=== PATIENT | male | born 1940 | race Caucasian/White ===

== ENCOUNTER 2017-01-16 12:08 | Inpatient (IN) | payer OTHER ==
[~2017-01-16] VITALS: Ht 170.2 cm; Wt 90.3 kg
--- NOTE | ~2017-01-16 | S ---
[facility] [place] [address] SURGICAL PATH RPT PROCEDURE Name: SCOTT LUNDBERG Room #: 314-P ADM IN M.R.#: [id number] Admission: 01/16/17 Date of : 40 Discharge: Report #: [id number] Path Case #: [id number] PATHOLOGY REPORT COLLECTION DATE: 01/16/2017 RECEIVED DATE: 01/17/2017 SUBMITTING PHYS: Dr. Valentin Westfall OTHER PHYS: Dr. Maximo Camacho SPECIMEN(S) RECEIVED: A.Peripheral smear * * * * * * * * * * * * FINAL DIAGNOSIS: Peripheral blood smear: - Severe microcytic anemia, mild lymphopenia, and mild thrombocytopenia. (see comment) COMMENT: Overall, the peripheral blood has severe microcytic anemia, mild lymphopenia, and mild thrombocytopenia. The WBC count is within the normal reference range. The etiology of the findings is unclear based entirely on slide review. Potential causes of microcytic anemia include iron deficiency and thalassemia. Potential causes of thrombocytopenia include immune and non-immune platelet destruction, drug and/or toxic exposures, blood loss, dilutional, and primary bone marrow disorders. The clinical significance of the mild lymphopenia is unclear. Correlation with clinical history and additional laboratory data is recommended. (RYANW:; 01/17/2017) PATHOLOGIST: Delmis Hsu M.D. REPORT ELECTRONICALLY SIGNED BY: Delmis Hsu M.D. DATE/TIME: 01/17/2017 16:53 * * * * * * * * * * * * MICROSCOPIC DESCRIPTION: CBC Data (01/16/17): WBC 4,800 /uL, RBC 3.34, hemoglobin 7.8 g/dL, hematocrit 25.1%, MCV 75.2 fL, MCH 23.3 pg, MCHC 31.0 g/dL, RDW 18.8%, and platelet count 126,000 /uL. Manual white blood cell differential: segs 69%, bands 5%, lymphs 10%, monos 12%, eos 2%, and basos 2%. Peripheral Blood Smear: Cytomorphological examination of the Chacon's stained peripheral blood smear confirms the provided data. Red blood cells show severe microcytic anemia with mild anisocytosis. No significant poikilocytosis is identified. White blood cells are predominantly [address] [address] SURGICAL PATH RPT PROCEDURE Name: SCOTT LUNDBERG Room #: 314-P ADM IN M.R.#: [id number] Admission: 01/16/17 Date of : 40 Discharge: Report #: [id number] Path Case #: [id number] segmented neutrophils and are without significant dyspoiesis or significant left shift. Lymphocytes are predominantly small, round, and mature appearing with condensed chromatin and scant cytoplasm with admixed large granular lymphocytes. On scanning, no markedly atypical lymphoid cells are seen. Monocytes are mature. Platelets are mildly decreased in number and mainly normal in morphology with rare larger platelets noted. GROSS PATHOLOGY: Received are one Chacon's stained peripheral blood smear and two unstained peripheral blood smears all labeled "Scott Lundberg" (CLW:mgtete; 01/17/2017) CLINICAL HISTORY: 76 year-old man with anemia. Morphologic review of the peripheral blood smear is requested by the patient's physician. INITIAL CPT CODE(S): A; NC Professional services performed by [facility] at [facility] [address], [place] [address] Technical services performed by [facility] at [address] [place] [address], [address] [address]. [facility] [address] [place] [address] PHONE: [phone] DIRECTOR: Jorge Alarcon M.D. * * * END OF REPORT * * *
--- NOTE | ~2017-01-16 | S ---
[facility] [place] [address] SURGICAL PATH RPT PROCEDURE Name: SCOTT LUNDBERG Room #: 314-P ADM IN M.R.#: [id number] Admission: 01/16/17 Date of : 40 Discharge: Report #: [id number] Path Case #: [id number] PATHOLOGY REPORT COLLECTION DATE: 01/17/2017 RECEIVED DATE: 01/17/2017 SUBMITTING PHYS: Dr. Obey Torres OTHER PHYS: Dr. Valentin Camacho SPECIMEN(S) RECEIVED: A.Bx of antrum * * * * * * * * * * * * FINAL DIAGNOSIS: Gastric mucosa, antrum, endoscopic biopsy: - Moderate reactive gastropathy. - Negative for intestinal metaplasia or atrophy. - Negative for Helicobacter pylori. COMMENT: Helicobacter pylori immunohistochemical stain performed on block A1 - negative. (IUV:db; 01/18/2017) PATHOLOGIST: Sisi Cantu M.D. REPORT ELECTRONICALLY SIGNED BY: Sisi Cantu M.D. DATE/TIME: 01/18/2017 17:12 * * * * * * * * * * * * GROSS PATHOLOGY: Received in formalin labeled "Scott Lundberg BX of antrum," and additionally labeled on requisition as "r/o H. pylori," are three segments of oliveira soft tissue measuring 0.9 x 0.2 x 0.2 cm in aggregate dimensions and ranging from 0.3 to 0.3 cm in maximum dimension. The specimen is submitted entirely in cassette A1. (TSD; 01/17/2017) CLINICAL HISTORY: Pre-OP DX: Anemia, recent melena Post-OP DX: Gastritis INITIAL CPT CODE(S): A; 84923, 91833 [facility] [address] [place] [address] SURGICAL PATH RPT PROCEDURE Name: SCOTT LUNDBERG Room #: 314-P ADM IN M.R.#: [id number] Admission: 01/16/17 Date of : 40 Discharge: Report #: [id number] Path Case #: [id number] [address], [place] [address] [facility] at [address] [place] [address], [address], [place] [address]. [place] [address] PHONE: [phone] DIRECTOR: Jorge Alarcon M.D. * * * END OF REPORT * * *
--- NOTE | ~2017-01-16 | HC ---
[facility] [place] [address] CONSULTATION Name: CENTENOSHIRIN Room #: 314-P ADM IN M.R.#: [id number] Admission: 01/16/17 Attend Phys: Valentin Westfall MD Discharge: Date of : 40 Report #: [id number] THIS REPORT FOR: //name// CC: Maximo Westfall INFECTIOUS DISEASES CONSULTATION REASON FOR CONSULTATION: I was asked to evaluate concerning pneumonia. HISTORY OF PRESENT ILLNESS: The patient is a 76-year-old, a patient of ____, who was hospitalized with shortness of breath and intermittent nonproductive cough for the last 3 weeks at [facility]. There, he had bilateral pulmonary infiltrates. Initially, he got congestive heart failure. Then, he developed a low-grade fever. Placed on Levaquin and doxycycline. Had evidence of anemia and he was transferred back up to [facility] for further evaluation. Overall, he feels some better, although he is on oxygen at 2 liters per nasal cannula. He continues to have intermittent cough. No chills or sweats. Has had a low-grade fever. No nausea or vomiting. No diarrhea. He had black stools several days ago, but those have resolved. Describes no abdominal pain. He has had no pleuritic chest pain. He does have some cardiac issues and has been followed by ____ with atrial fibrillation. He has also had septal defect repair. Denies any travel. He has a fair amount of outdoor exposure. Lives with his . He has otherwise been without respiratory tract infection symptoms. No history of pneumonia. ALLERGIES: None known. MEDICATIONS: As noted on his MAR, now on doxycycline and Levaquin at the time of transfer. PAST MEDICAL HISTORY: Appendectomy, coronary artery bypass grafting, shoulder surgery on the right. FAMILY HISTORY: Noncontributory. SOCIAL HISTORY: He is a past smoker, no significant alcohol intake. No recent immunizations. REVIEW OF SYSTEMS: As noted above with no abdominal pain, dysuria or frequency, back or flank pain. PHYSICAL EXAMINATION: VITAL SIGNS: Afebrile, hemodynamically stable. GENERAL: He is alert and cooperative. He is edentulous. [facility] [address] [place] [address] CONSULTATION Name: SHIRIN CENTENO Room #: 314-P [facility] IN [facility].#: [id number] Admission: 01/16/17 Attend Phys: Valentin Westfall MD Discharge: Date of : 40 Report #: [id number] HEENT: Otherwise, unremarkable. NECK: Supple. LUNGS: Crackles in the bases bilaterally. No consolidation or rub. HEART: Irregular without appreciable murmur. ABDOMEN: Soft, nontender, no hepatosplenomegaly or mass appreciated. EXTREMITIES: Trace peripheral edema. LABORATORY STUDIES: Urinalysis unremarkable. BNP 1583. Hemoglobin 7.8; platelet count 126,000; white count 4.8 with 69% segs and 5% bands. Sodium 140, potassium 3.7, bicarbonate 30, creatinine 1.1. Liver function test normal. Chest x-ray done and CAT scan showed bilateral infiltrates consistent with edema. IMPRESSION: A 76-year-old with bilateral pulmonary infiltrates, still most likely related to congestive heart failure. He has had intermittent cough, but no sputum production. Unclear regarding the low-grade fever. He does not have evidence of leukocytosis. He is now 3 days into his treatment program. We will plan to continue Levaquin, check urine Streptococcus pneumoniae and Legionella antigen, repeat his chest x-ray and reassess following these studies. By: 1850 0118 Patel Gan MD /nt
--- NOTE | ~2017-01-16 | EKG ---
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: Mary SMITH : 1940 Requested By: Valentin Westfall Order Number: [id number] MD: Jaya Quintana Measurements Intervals Umpire Rate: 76 P: -23 NV: 155 QRS: 96 QRSD: 158 T: 30 QT: 410 QTc: 462 Interpretive Statements Sinus rhythm Multiple premature complexes, vent & supraven RBBB and LPFB Compared to ECG 03/30/2007 10:09:10 Ventricular and premature supraventricular complexes are now present Electronically Signed On 01-17-2017 17:50:45 CDT by Jaya Quintana [email or web address] <ELECTRONICALLY SIGNED> By: Jaya Quintana MD, [facility] 01/17/17 1750 1600 1600 Jaya Quintana MD, [facility] /EPI
--- NOTE | ~2017-01-16 | H ---
[facility] [place] [address] HISTORY AND PHYSICAL Name: CENTENOSHIRIN Room #: 314-P ADM IN M.R.#: [id number] Admission: 01/16/17 Attend Phys: Valentin Westfall MD Discharge: Date of : 40 Report #: [id number] THIS REPORT FOR: //name// CC: Maximo Westfall DATE OF SERVICE: 01/16/2017 CHIEF COMPLAINT: Shortness of breath. HISTORY OF PRESENT ILLNESS: The patient is a 76-year-old male with history of hypertension; history of atrial fibrillation, on Xarelto. Initially was admitted on 01/14/2017 at [facility] for cough and shortness of breath. He has had shortness of breath over the last 3 weeks. He has had increased cough over the last few days. Cough has been mostly dry. He has occasional chest pain with coughing. The patient has also noticed fever over the last couple of days. The patient was found to be anemic when he was admitted at [facility]. His initial hemoglobin on admission was 7.8. His hemoglobin today was 7.1. His peripheral smear study at [facility] suggested some inclusion bodies in the red cells. The patient was transferred to [facility] today for GI and Infectious Disease evaluation. His chest x-ray done at [facility] showed bilateral perihilar and basilar predominant heterogenous airspace opacity, most likely related to pulmonary edema. The patient was seen by financial planning adviser there and was diuresed with IV Lasix. He also had an echocardiogram done, which showed abnormal septal motion, his preserved left ventricular systolic function, EF was 60% with severe right atrial dilation, moderate left atrial dilation, right ventricle severely dilated, moderate to severely reduced right ventricular systolic function. His hemoglobin today was also 7.1 at [facility]. PAST MEDICAL HISTORY: Significant for atrial fibrillation, hypertension, BPH, dyslipidemia, aortic stenosis. FAMILY HISTORY: Significant for cancer. SOCIAL HISTORY: No smoking, alcohol abuse, or illicit drug abuse. ALLERGIES: No known drug allergy. HOME MEDICATIONS: Includes Cardizem, Zocor, terazosin, Ambien, Proscar, Avapro, Xarelto, Flomax. Please look at the nursing documentation for the dosages. REVIEW OF SYSTEMS: CONSTITUTIONAL: No recent weight loss, weight gain. He has had fever for the last few days. HEENT: Eyes: No change in vision. Throat: Denies any sore throat. [facility] [address] [place] [address] HISTORY AND PHYSICAL Name: SHIRIN CENTENO Room #: 314-P [facility] IN [facility]#: [id number] Admission: 01/16/17 Attend Phys: Valentin Westfall MD Discharge: Date of : 40 Report #: [id number] CARDIOVASCULAR: As above. Note he had mild dizziness few days back. RESPIRATORY: As above. GASTROINTESTINAL: No nausea, vomiting, abdominal pain. He did have melanotic black stool 2 weeks ago. GENITOURINARY: No dysuria, hematuria. NEUROLOGIC: No focal numbness or weakness of the extremity. PSYCHIATRIC: No anxiety or depression. A 12-point review of system is negative other than the positive and negative dictated in the history of present illness and the review of system. PHYSICAL EXAMINATION: VITAL SIGNS: Blood pressure 108/46, heart rate of 18 per minute, afebrile. GENERAL: The patient is awake and alert, not in acute respiratory distress. HEENT: Eyes: Pupils equal, reactive to light, nonicteric, conjunctivae. Throat appears normal. NECK: Supple. JVD elevated. No bruit, no lymphadenopathy. CARDIOVASCULAR SYSTEM: S1, S2. He had no S3. Regular. Soft systolic murmur in the left sternal border. CHEST: Bilateral air entry present, bilateral basilar crackles noted. ABDOMEN: Soft, bowel sounds present. No mass, no organomegaly, no tenderness. PERIPHERY: No pedal edema. No calf tenderness. Dorsalis pedis 1+. NEUROLOGICAL: No gross motor or sensory deficit. LABORATORY DATA: Reviewed. These labs were done at [facility]. From today, his hemoglobin is 7.1, MCV is 80.3, platelets is 139, white count is 4.8. BUN and creatinine 24 and 1.0. Potassium is 3.6, calcium is 7.9. Iron was low at 17. Total bilirubin 0.5. AST and ALT are within normal limit. IMAGING: Chest x-ray done showed bilateral infiltrates consistent with ____ pulmonary edema. Echocardiogram showed EF of 60%, abnormal septal motion, dilated right atrium, dilated left atrium, right ventricular ____ severely dilated, trace aortic insufficiency. ASSESSMENT AND PLAN: 1. Ovtlk-wj-ailgeqd respiratory failure, combination of congestive heart failure/bronchitis. 2. Congestive heart failure, yyzxx-vn-murwvjw diastolic congestive heart failure. Echocardiogram done at [facility] showed ejection fraction of 60%, also ____ severe right atrial dilation, moderate left atrial dilation, dilated right ventricle. We will consult Cardiology. We will diurese with IV Lasix. 3. Febrile illness. We will consult Infectious Disease. We will continue with levofloxacin and doxycycline at present. We will repeat blood culture. We will also repeat a chest x-ray and UA. [facility] [address] [place] [address] HISTORY AND PHYSICAL Name: SHIRIN CENTENO Room #: 314-P [facility] IN ..#: [id number] Admission: 01/16/17 Attend Phys: Valentin Westfall MD Discharge: Date of : 40 Report #: [id number] 4. Anemia. The patient stated that he did have black melanotic stool 2 weeks ago. We will check a stool occult blood. He will be placed on Protonix. We will consult GI for possible endoscopy. We will hold off on Xarelto at present. Hematology will also be consulted because of possibility of some inclusion body in the red cells. 5. Deep venous thrombosis prophylaxis. SCD on the leg for deep venous thrombosis prophylaxis. 6. History of atrial fibrillation. The patient will be continued on Cardizem. We will hold Xarelto because of anemia and possible GI bleed. 7. Hypertension. Continue to monitor. The patient will be continued on Cardizem. Treatment plan has been explained to the patient and the family in detail. <ELECTRONICALLY SIGNED> By: Valentin Westfall MD 01/17/17 1309 1417 1900 Valentin Westfall MD /nt
--- NOTE | ~2017-01-16 | HC ---
[facility] [place] [address] CONSULTATION Name: SHIRIN CENTENO Room #: 314-P [facility] IN M.R.#: [id number] Admission: 01/16/17 Attend Phys: Valentin Westfall MD Discharge: Date of : 40 Report #: [id number] THIS REPORT FOR: //name// CC: Joe Torres MD DATE OF SERVICE: 01/17/2017 REASON FOR CONSULT: Anemia. HISTORY OF PRESENT ILLNESS: The patient is a very pleasant 76-year-old gentleman from the [facility], who had a normal hemoglobin of about 13 back in October, recently was found to be down around 7.6 or 7.3. He is aware about 2-3 episodes of black tarry stool over the last 2-3 weeks. Denies any dyspepsia. He says he really has not taken any iron pills. He is not aware of any previous bleeding troubles. He had noticed mostly that he was short of breath, could move air but was not doing him as much good. He had also a slight cough, maybe a low-grade fever, not really clear about that. May be a slight cough, mostly nonproductive. No new skin rash. Maybe a little bit of new ankle swelling. No new diarrhea, no new constipation, no blood in his urine, no new belly pain, no abdominal bloating, no significant weight change. PAST MEDICAL HISTORY: Notable for history of atrial fibrillation for quite some time. He has been on Xarelto and most recently, he had been on rivaroxaban since I think he used it about May. He also has a history of severe tricuspid regurgitation with an estimated pulmonary artery pressure of 55-60 mg per echo done at [facility] about 01/16/2017, also has a history of sort of heart defect with surgery in 1957, also history of BPH, and also history of hyperlipidemia. 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 Smoking: He was a never smoker. Alcohol: None. Drug use: None. FAMILY HISTORY: There might have been cancer in one of his parents. No blood issues that he is aware of. He has 6 children that are alive and well without any blood issues. ALLERGIES: I believe, none. MEDICATIONS: As an outpatient, head had included diltiazem, simvastatin, [facility] [address] [place] [address] CONSULTATION Name: SHIRIN CENTENO Room #: 314-P [facility] IN [facility]#: [id number] Admission: 01/16/17 Attend Phys: Valentin Westfall MD Discharge: Date of : 40 Report #: [id number] terazosin, zolpidem, finasteride, irbesartan, rivaroxaban and tamsulosin. Here in the hospital, his medications currently include levofloxacin 750 mg daily, zolpidem 10 mg at bedtime, tamsulosin 0.8 mg at bedtime, finasteride 5 mg at bedtime, diltiazem CD 120 mg at bedtime, pantoprazole 40 mg b.i.d., MiraLax 17 g b.i.d. p.r.n., KCl 20 mEq daily, atorvastatin calcium 10 mg daily, furosemide 40 mg b.i.d. IV. RADIOLOGICAL STUDIES: Here include a chest x-ray that is not yet available to review, question bilateral infiltrates consistent with either heart failure or early pneumonia. LABORATORY DATA: Blood tests here, BUN of 27, creatinine of 0.9. Liver functions normal with a total bilirubin of 0.3. ALT 19, albumin 3.1, iron 11, TIBC 376, percent saturation 3. INR 1.2 here. White count 4.8, hemoglobin 7.3, MCV of 75.2 and then 74.3 today, platelets 128. Differential had been fairly nonacute without any acute forms. Absolute reticulocyte count yesterday was 0.083. Ferritin 10, folate 19.1, B12 255. UA did not reveal any red cells. PHYSICAL EXAMINATION: GENERAL: The patient appears his stated age. VITAL SIGNS: Height is 5 feet 7 inches, which is 170.2 cm. Weight is 199 pounds, which is 90.3 kg. Blood pressure is 89/38 with an O2 sat of 95% on room air, respirations 18, pulse 60, temperature 98.8. PSYCHIATRIC: Mood: The patient is very pleasant and conversant. NEUROLOGIC: Face is symmetrical. He is moving all extremities. Speech pattern and thought process appear to be normal. LUNGS: Mostly clear. HEART: Has some irregular rhythm with a regular rate. No enlarged lymph nodes in the supraclavicular, cervical, axillary or inguinal region. ABDOMEN: Slightly obese. No organomegaly. Nontender. EXTREMITIES: Trace edema. ASSESSMENT AND PLAN: 1. Iron deficiency anemia, suspect gastrointestinal blood loss. I agree with holding anticoagulation and proceeding with endoscopy. It would be where the patient has had developmental lesion that is more likely to bleed since he has been on anticoagulation. We will plan on IV iron so that the patient makes his own blood and not have dark stools interfere with evaluation. 2. Severe tricuspid regurgitation and right heart systolic dysfunction, would refer to others, currently receiving Lasix. 3. Question of pneumonia. Currently on levofloxacin per Pulmonary. 4. Benign prostatic hypertrophy. He is on medicines for that. 5. Hypertension. Meds for that. [facility] [address] [place] [address] CONSULTATION Name: SHIRIN CENTENO Mary Room #: 314-P ADM IN M.R.#: [id number] Admission: 01/16/17 Attend Phys: Valentin Westfall MD Discharge: Date of : 40 Report #: [id number] 6. Atrial fibrillation. Rate controlled with diltiazem. We will follow with you. <ELECTRONICALLY SIGNED> By: Richie Amaral MD 01/19/17 0720 0749 0908 Richie Amaral MD /nt
--- NOTE | ~2017-01-16 | P ---
[facility] [place] [address] PROCEDURE REPORT Name: SHIRIN CENTENO Room #: 314-P [facility] IN M.R.#: [id number] Admission: 01/16/17 Attend Phys: Valentin Westfall MD Discharge: 01/19/17 Date of : 40 Report #: [id number] THIS REPORT FOR: //name// CC: Maximo Westfall MD DATE OF SERVICE: 01/19/2017 PATIENT OF: Dr. Westfall and Dr. Maximo Camacho. PROCEDURE: Diagnostic colonoscopy. INDICATION FOR PROCEDURE: Evaluate melena and a sudden drop in hemoglobin. The patient is anemic. Informed consent for this procedure was obtained prior to the administration of any medication. The risks of the procedure which include bleeding, perforation, infection, complications of sedation and the possibility I could miss something have been explained to the patient and he has indicated his consent by signing. Propofol was slowly titrated before and during this procedure for patient comfort by the anesthesia service. A digital rectal exam was performed and was normal. I could palpate the inferior tip of the prostate only and it felt symmetrical. The [employer] colonoscope was introduced through the anal sphincter and advanced under direct visualization to the terminal ileum. Findings are noted on withdrawal of the scope. The terminal ileal mucosa appears normal. Cecum, normal mucosa. Retroflex view in the ascending colon did not reveal any abnormalities or polyps on the back sides of the ascending colonic folds. The ascending colonic mucosa appears normal. Hepatic flexure, normal mucosa. Transverse colon, normal mucosa. Splenic flexure, normal mucosa. Descending colon, a few uncomplicated diverticula are noted. Sigmoid colon, multiple uncomplicated diverticula are noted. Rectum, normal mucosa. Retroflex view reveals some medium sized nonbleeding internal hemorrhoids. The scope was withdrawn. The patient went to the recovery room in stable condition. He tolerated the procedure well. IMPRESSION: 1. Uncomplicated left-sided diverticulosis. Other than that, normal colonoscopic exam to the terminal ileum. 2. Medium sized nonbleeding internal hemorrhoids. Source of melena not seen on this exam. [facility] [address] [place] [address] PROCEDURE REPORT Name: SHIRIN CENTENO Room #: 314-P DIS IN M.R.#: [id number] Admission: 01/16/17 Attend Phys: Valentin Westfall MD Discharge: 01/19/17 Date of : 40 Report #: [id number] My recommendations would be to proceed with an M2 capsule as an outpatient as the source of the patient's melena and drop in hemoglobin has still not been discovered. Thank you very much once again for allowing me to participate in his care. <ELECTRONICALLY SIGNED> By: Sanam Louie DO 01/20/17 1237 1216 1745 Sanam Louie, /nt
[~2017-01-16 12:08] MED LIST: DILTIAZEM ER120 M1 PO; FLOMAX0.4 MG PO; HYTRIN 5 M5 MG/1 CAP PO; IBUPROFEN200 M1 PO; IRBESARTAN300 MG PO; PRADAXA150 MG PO; ROXICODONE5 M2 PO; ZOCOR20 MG PO; ZOFRAN 4 MG ORAL4 MG PO; ZOLPIDEM TARTRA10 MG PO
[2017-01-16 13:45] VITALS: BP 108/46
[2017-01-16 15:40] LABS: HEMATOCRIT 25.1 % (42.0-52.0); HEMOGLOBIN 7.8 gm/dL (14.0-18.0); MANUAL DIFF YES; MCH 23.3 pg (26.0-34.0); MCV 75.2 fL (80.0-100.0); OBSERVED RETIC COUNT 2.48 % (0.6-2.6); PLATELET COUNT 126 thou/uL (150-400); RBC 3.34 mil/uL (4.50-6.00); RDW 18.8 % (10.5-14.5); WBC 4.8 thou/uL (4.0-11.0)
[2017-01-16 15:56] LABS: ALBUMIN 3.1 g/dL (3.4-5.0); CALCIUM 8.4 mg/dL (8.5-10.1); CREATININE 1.1 mg/dL (0.7-1.3); POTASSIUM 3.7 mmol/L (3.5-5.1); TOTAL BILIRUBIN 0.3 mg/dL (<0.1-1.0); TOTAL PROTEIN 5.7 g/dL (6.4-8.2)
[2017-01-16 15:58] LABS: ABSOLUTE NEUTROPHILS 3.6 thou/uL (1.4-8.2); HYPOCHROMASIA 1+; PLATELET ESTIMATE NORMAL; TOTAL CELL COUNT 100
[2017-01-16 15:59] LABS: ANISOCYTOSIS 2+; MICROCYTES 2+; POLYCHROMASIA SLIGHT
[2017-01-16 16:17] LABS: URINE BILIRUBIN NEGATIVE (Negative); URINE BLOOD NEGATIVE (Negative); URINE COLOR YELLOW; URINE GLUCOSE-RANDOM* NEGATIVE (Negative); URINE KETONES NEGATIVE (Negative); URINE LEUKOCYTES-REFLEX NEGATIVE (Negative); URINE PROTEIN (DIPSTICK) TRACE (Negative); URINE SPECIFIC GRAVITY >= 1.030 (1.003-1.035); URINE UROBILINOGEN 0.2 E.U./dl (0.2-1.0)
[2017-01-16 16:19] LABS: FOLIC ACID 19.1 ng/mL (8.6-58.9)
[2017-01-16 19:40] VITALS: BP 97/49
[2017-01-16 19:44] VITALS: BP 105/55
[2017-01-17 04:27] VITALS: BP 89/38
[2017-01-17 04:58] LABS: HEMATOCRIT 23.1 % (42.0-52.0); HEMOGLOBIN 7.3 gm/dL (14.0-18.0); MCH 23.6 pg (26.0-34.0); MCHC 31.7 g/dL (28.0-37.0); MCV 74.3 fL (80.0-100.0); PLATELET COUNT 128 thou/uL (150-400); RDW 18.6 % (10.5-14.5); WBC 4.6 thou/uL (4.0-11.0)
[2017-01-17 05:03] LABS: MANUAL DIFF YES
[2017-01-17 05:21] LABS: CALCIUM 8.3 mg/dL (8.5-10.1); CREATININE 0.9 mg/dL (0.7-1.3); MAGNESIUM 1.9 mg/dL (1.8-2.4); POTASSIUM 3.8 mmol/L (3.5-5.1)
[2017-01-17 08:53] LABS: ABSOLUTE NEUTROPHILS 3.2 thou/uL (1.4-8.2); ANISOCYTOSIS 1+; HYPOCHROMASIA 2+; MICROCYTES 3+; PLATELET ESTIMATE NORMAL; TOTAL CELL COUNT 100
[2017-01-17 16:34] VITALS: BP 102/58; BP 97/52
[2017-01-17 21:00] VITALS: BP 93/55
[2017-01-18 03:50] VITALS: BP 88/52
[2017-01-18 06:25] LABS: ABSOLUTE NEUTROPHILS 3.7 thou/uL (1.4-8.2); BASOPHILS 0.6 % (0.0-2.0); EOSINOPHILS 1.8 % (0.0-3.0); HEMATOCRIT 26.2 % (42.0-52.0); HEMOGLOBIN 8.5 gm/dL (14.0-18.0); LYMPHOCYTES 11.6 % (24.0-44.0); MCHC 32.4 g/dL (28.0-37.0); MCV 74.2 fL (80.0-100.0); MONOCYTES 11.6 % (1.0-8.0); PLATELET COUNT 137 thou/uL (150-400); POLYS 74.4 % (36.0-66.0); RBC 3.53 mil/uL (4.50-6.00); RDW 18.9 % (10.5-14.5)
[2017-01-18 06:27] LABS: MANUAL DIFF NO
[2017-01-18 06:58] LABS: CALCIUM 8.3 mg/dL (8.5-10.1); CREATININE 0.6 mg/dL (0.7-1.3); POTASSIUM 3.9 mmol/L (3.5-5.1)
[2017-01-18 07:56] VITALS: BP 99/49
[2017-01-18 20:45] VITALS: BP 120/65
[2017-01-19 03:59] LABS: HEMATOCRIT 26.7 % (42.0-52.0); HEMOGLOBIN 8.7 gm/dL (14.0-18.0); MCH 24.3 pg (26.0-34.0); MCHC 32.7 g/dL (28.0-37.0); MCV 74.5 fL (80.0-100.0); PLATELET COUNT 153 thou/uL (150-400); RBC 3.58 mil/uL (4.50-6.00); RDW 19.2 % (10.5-14.5)
[2017-01-19 04:00] VITALS: BP 102/71
[2017-01-19 04:10] LABS: MANUAL DIFF YES
[2017-01-19 04:18] LABS: CALCIUM 8.6 mg/dL (8.5-10.1); CREATININE 0.8 mg/dL (0.7-1.3); POTASSIUM 3.6 mmol/L (3.5-5.1)
[2017-01-19 07:35] VITALS: BP 119/65
[2017-01-19 07:43] LABS: ABSOLUTE NEUTROPHILS 4.6 thou/uL (1.4-8.2); ANISOCYTOSIS 2+; HYPOCHROMASIA 1+; MICROCYTES 2+; OVALOCYTES 1+; TOTAL CELL COUNT 100
[2017-01-19] MEDS ORDERED: LEVAQUIN 750 M750 MG PO (13:29)
[2017-01-19] MEDS ORDERED: PANTOPRAZOLE SO40 M1 PO (13:29)
[2017-01-19] MEDS ORDERED: FINASTERIDE5 MG PO (13:32)
[2017-01-19] MEDS ORDERED: LASIX 40 MG TAB40 M2 PO (13:34)
[2017-01-19] MEDS ORDERED: POTASSIUM20 PO (13:34)
[2017-01-19 13:54] LABS: HEMATOCRIT 31.3 % (42.0-52.0); HEMOGLOBIN 9.9 gm/dL (14.0-18.0)
[2017-01-19] MEDS ORDERED: PRADAXA150 MG PO (14:37)
[2017-01-19 14:38] VITALS: BP 119/65
== END 2017-01-19 16:00 | disposition home or self-care (01) | DRG 291 ==
LOC: 3W 12:08 → 3N 13:46 → ENTRNSPT 01-19 15:27 → EDTRNSPTSTS 01-19 15:29 → 3N 01-19 16:00
PROVIDERS: Internal Medicine
PROC: 0DB68ZX Excision of Stomach, Via Natural or Artificial Opening Endoscopic, Diagnostic (ICD-10-PCS; principal; 2017-01-17)
PROC: 30233N1 Transfusion of Nonautologous Red Blood Cells into Peripheral Vein, Percutaneous Approach (ICD-10-PCS; principal; 2017-01-17)
PROC: 0DJD8ZZ Inspection of Lower Intestinal Tract, Via Natural or Artificial Opening Endoscopic (ICD-10-PCS; 2017-01-19)
DX: I11.0 Hypertensive heart disease with heart failure (principal); J96.20 Acute and chronic respiratory failure, unspecified whether with hypoxia or hypercapnia; J18.0 Bronchopneumonia, unspecified organism; I50.33 Acute on chronic diastolic (congestive) heart failure; K57.30 Diverticulosis of large intestine without perforation or abscess without bleeding; K59.00 Constipation, unspecified; K44.9 Diaphragmatic hernia without obstruction or gangrene; K29.70 Gastritis, unspecified, without bleeding; I48.91 Unspecified atrial fibrillation; D50.9 Iron deficiency anemia, unspecified; I07.1 Rheumatic tricuspid insufficiency; N40.0 Benign prostatic hyperplasia without lower urinary tract symptoms; E78.5 Hyperlipidemia, unspecified; E66.9 Obesity, unspecified; K64.8 Other hemorrhoids; E78.00 Pure hypercholesterolemia, unspecified; M19.90 Unspecified osteoarthritis, unspecified site; I27.2 Other secondary pulmonary hypertension; I95.9 Hypotension, unspecified; Z68.31 Body mass index [BMI] 31.0-31.9, adult; Z87.891 Personal history of nicotine dependence; Z95.1 Presence of aortocoronary bypass graft; Z90.49 Acquired absence of other specified parts of digestive tract; Z80.8 Family history of malignant neoplasm of other organs or systems
CPT/HCPCS: 10096; 62110; 62900; 70005

== ENCOUNTER → 2017-06-13 | Outpatient (CLI) | payer OTHER ==
[~2017-06-13] MED LIST changes: +FINASTERIDE5 MG PO; +LASIX 40 MG TAB40 M2 PO; +LEVAQUIN 750 M750 MG PO; +PANTOPRAZOLE SO40 M1 PO; +POTASSIUM20 PO
== END ==
LOC: RAD 11:49
DX: J18.9 Pneumonia, unspecified organism (principal); I50.9 Heart failure, unspecified

== ENCOUNTER 2018-09-28 05:17 | Day surgery (SDC) | payer OTHER ==
[~2018-09-28] VITALS: Ht 167.6 cm; Wt 78.5 kg
--- NOTE | ~2018-09-28 | O ---
[facility] [place] [address] OPERATIVE REPORT Name: SHIRIN CENTENO Room #: 150-3 [facility] M.R.#: [id number] Admission: 09/28/18 ������������������ Attend Phys: Carlos Brantley MD Discharge: ������������������ Date of : 40 Report #: [id number] THIS REPORT FOR: //name// CC: Carlos Camacho MD PREOPERATIVE DIAGNOSIS: Skin cancer, right dorsum of the hand, measuring about 2 cm. POSTOPERATIVE DIAGNOSIS: Skin cancer, right dorsum of the hand, measuring about 2 cm. PROCEDURES PERFORMED: Wide excision of a skin cancer, right hand with elevation of skin flap and primary closure. SURGEON: Carlos Brantley M.D. ANESTHESIA: IV sedation. COMPLICATIONS: None. ESTIMATED BLOOD LOSS: 10 mL. PROCEDURE NOTE: With the patient under IV sedation, the right hand was prepped and draped in sterile fashion. Marking pen was used to laura out the ellipse surrounding the skin cancer. I decided to go ahead and do a vertically oriented ellipse. It measured 6 x 2.5 cm. Incision was made along the marking pen after this was prepped and draped in sterile fashion. Timeout was performed. The entire skin lesion was removed. There was a large vein in the hand that was underneath that was preserved. There was a small branch coming from the vein, this was ligated with 3-0 Vicryl tie. The skin edges had to be elevated on either side. Even with that, it was still somewhat difficult to close. The skin also was noted to be fairly thin. With gradually closing from the ends was not under tension with 4-0 nylon suture, the skin was brought together. A few 3-0 nylon was also used. Fortunately of the skin did not tear. Antibiotic ointment, 4 x 4 was applied. The hand was then wrapped with Kerlix and Coban. The patient was then taken to recovery having tolerated the procedure well. ��������������������������������������������� ���������������������������������������� By: ��������������������������������������������� 1032 1152 Carlos Brantley MD /nt
--- NOTE | ~2018-09-28 | H ---
[facility] [place] [address] HISTORY AND PHYSICAL Name: SHIRIN CENTENO Room #: [facility] M.R.#: [id number] Admission: ������������������ Attend Phys: Carlos Brantley MD Discharge: ������������������ Date of : 40 Report #: [id number] THIS REPORT FOR: //name// CC: Carlos Camacho MD PREOPERATIVE DIAGNOSIS: Suspicious lesion in the dorsum of the right hand, probably skin cancer. 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 He came to the office because he has a lesion on the right hand that has not healed. It has been there for a couple of years. The patient says when he scrapes or bumps into it, it will bleed. The patient is recommended to have this excised because it looks like a skin cancer. There is a main area that is about a centimeter half along the edges. The skin is rough looking, which could be just dermatitis. Excisional biopsy is recommended. Frozen section will be performed at the time of surgery. The patient will be brought in for procedure. PAST MEDICAL HISTORY: He has a history of high blood pressure, elevated cholesterol, history of atrial fibrillation, congestive heart failure, enlarged prostate. 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 He had his appendix removed in 1973. MEDICATIONS: Simvastatin 20 mg, losartan 50 mg daily, warfarin 3 mg, spironolactone 25 mg, digoxin, finasteride, zolpidem 10 mg. ALLERGIES: The patient is not allergic to anything. FAMILY HISTORY: Unremarkable. SOCIAL HISTORY: The patient is retired, does not smoke or drink. PHYSICAL EXAMINATION: GENERAL: The patient is an elderly male, in no acute distress. He is alert and oriented. HEENT: Pupils reactive to light. Extraocular muscles are intact. Oropharynx is clear. NECK: Soft and supple, no masses. LUNGS: Clear to auscultation. HEART: Irregular rate and rhythm. No murmur or gallop. ABDOMEN: Soft, nondistended, nontender. EXTREMITIES: No cyanosis, clubbing or edema. SKIN: The patient does have a fairly large size skin lesion overlying the [address] [address] HISTORY AND PHYSICAL Name: SHIRIN CENTENO Room #: [facility] M.R.#: [id number] Admission: ������������������ Attend Phys: Carlos Brantley MD Discharge: ������������������ Date of : 40 Report #: [id number] dorsum of the lateral part of the hand. This is about a centimeter half in size. The skin around it is irregular, but could be dermatitis. IMPRESSION: The patient with an abnormal skin lesion that is in the right hand and has a history of basal cell in the back. This is suspicious for skin cancer. Excisional biopsy is recommended with frozen section. This will be performed with IV sedation. The patient did stop his Coumadin when he was seen on Monday. We will check a protime on the day of surgery. ��������������������������������������������� ���������������������������������������� By: ��������������������������������������������� [id number] Carlos Brantley MD /nt
[~2018-09-28 05:17] MED LIST changes: +COUMADIN 3 MG TA3 M1 PO; +DIGOXIN125 MCG PO; +LOSARTAN POTASS50 MG PO; +PROSCAR 5MG TABL5 MG PO; +SPIRONOLACTONE25 MG PO
[2018-09-28 09:28] LABS: CALCIUM 9.6 mg/dL (8.5-10.1); CREATININE 1.1 mg/dL (0.7-1.3); POTASSIUM 4.8 mmol/L (3.5-5.1)
[2018-09-28 09:33] LABS: INR 1.5; PROTIME 16.1 Seconds (9.3-11.4)
[2018-09-28 10:47] VITALS: BP 115/51
[2018-09-28] MEDS ORDERED: NORCO 5-325 TA1 EACH PO (12:25)
[2018-09-28 13:06] VITALS: BP 115/51
[2018-09-28 13:09] VITALS: BP 115/51
--- NOTE | 2018-09-28 15:52 | EKG ---
[place] [address] [facility] [address] ELECTROCARDIOGRAM REPORT Name: SHIRIN CENTENO Room #: 150-3 [facility] M.R.#: [id number] ������������������ Admission: 09/28/18 ������������������ Attend Phys: Carlos Brantley MD Discharge: ������������������ Date of : 40 Report #: [id number] ����������������������������������������������������������������� [id number] THIS REPORT FOR: //name// [facility] Test Date: 2018-09-28 Test Time: 12:35:01 Pat Name: SHIRIN CENTENO Department: Room: 150 3 Gender: M Attendant [employer]: maria del carmen : 1940 Requested By: Carlos Brantley Order Number: [id number] MD: Jaya Quintana Measurements Intervals [place] Rate: 86 P: 254 AL: 178 QRS: 113 QRSD: 165 T: -37 QT: 390 QTc: 467 Interpretive Statements Sinus or ectopic atrial rhythm Atrial premature complex Right bundle branch block Compared to ECG 01/16/2017 16:00:34 Premature ventricular complexes are no longer present Electronically Signed On 09-28-2018 15:51:48 CDT by Jaya Quintana [email or web address] ��������������������������������������������� <ELECTRONICALLY SIGNED> ���������������������������������������� By: Jaya Quintana MD, [facility] ��������������������������������������������� 09/28/18 1551 1235 1235 Jaya Quintana MD, [facility] /EPI
== END 2018-09-28 13:30 | disposition home or self-care (01) ==
LOC: TBA 05:17 → OR 05:17
PROVIDERS: Surgery
DX: C44.612 Basal cell carcinoma of skin of right upper limb, including shoulder (principal); I11.0 Hypertensive heart disease with heart failure; I50.9 Heart failure, unspecified; E78.00 Pure hypercholesterolemia, unspecified; I48.91 Unspecified atrial fibrillation; N40.0 Benign prostatic hyperplasia without lower urinary tract symptoms; Z90.49 Acquired absence of other specified parts of digestive tract; Z98.890 Other specified postprocedural states; Z79.899 Other long term (current) drug therapy; Z79.01 Long term (current) use of anticoagulants
CPT/HCPCS: 50010; 50101; 50386; 50403; 56525; 56526; 56527; 62110; 62850; 70005

== ENCOUNTER 2019-04-12 00:54 | Inpatient (IN) | payer OTHER ==
[~2019-04-12] VITALS: Ht 170.2 cm; Wt 71.4 kg
[2019-04-12] VITALS (8 sets, daily range): BP systolic 114–145; BP diastolic 60–94
[~2019-04-12 00:54] MED LIST changes: +NORCO 5-325 TA1 EACH PO
--- NOTE | 2019-04-12 01:55 | NUR ---
PATIENT ARRIVED AROUND 0130 A DIRECT ADMIT FROM [facility]. PATIENT WAS ABLE TO AMBULATE TO BED WITH [facility] ASSIST[facility] INCIDENT FREE AND IS CONSIDERED A HIGH FALL RISK. HE IS FULLY ALERT AND ORIENTED AND WILL BE ABLE TO PARTICIPATE IN ADMISSION. NURSE TO FULLY COMPLETE ADMISSION PROCESS AND INITIATE PLAN OF CARE.
[2019-04-12 07:15] LABS: HEMATOCRIT 51.3 % (42.0-52.0); MCH 31.3 pg (26.0-34.0); MCHC 33.2 g/dL (28.0-37.0); MCV 94.2 fL (80.0-100.0); RBC 5.44 mil/uL (4.50-6.00); RDW 13.8 % (10.5-14.5); WBC 8.4 thou/uL (4.0-11.0)
[2019-04-12 07:27] LABS: CALCIUM 9.9 mg/dL (8.5-10.1)
[2019-04-12 07:33] LABS: ALBUMIN 3.9 g/dL (3.4-5.0); TOTAL BILIRUBIN 1.4 mg/dL (<0.1-1.0); TOTAL PROTEIN 7.2 g/dL (6.4-8.2)
[2019-04-12 07:58] LABS: FOLIC ACID 13.6 ng/mL (8.6-58.9); TSH 1.265 uIU/mL (0.358-3.740)
[2019-04-12 08:52] LABS: CHOLESTEROL 136 mg/dL (<200); HDL CHOLESTEROL 49 mg/dL (>40); LDL CHOLESTEROL 73 mg/dL (<100); TC:HDL 2.8 Ratio (Not establshd); TRIGLYCERIDE 70 mg/dL (<150); VLDL 14 mg/dL (<40)
[2019-04-12 08:53] LABS: SERUM ASSESSMENT Clear
[2019-04-12 08:54] LABS: INR 3.9; PROTIME 40.1 Seconds (9.3-11.4)
--- NOTE | 2019-04-12 10:19 | NUR ---
assessment: CM REVIEWED CHART AND MET WITH PATIENT AT THE BEDSIDE. PT WAS ADMITTED A TRANSFER FOR [facility]CO WITH BLE WEANKESS. PT REPORTS HE LIVES IN A HOUSE WITH HIS . PT REPORTS HAVING ABOUT 12 STEPS WITH HANDRAILS ONCE HE ENTERS THROUGH THE GARAGE TO THE MAIN FLOOR. PT REPORTS HE AMBULATES INDEPENDENTLY BUT DOES STATE HE WAS USING A CANE THE PAST WEEK AND ALSO HAS A WALKER. PT REPORTS HAVING A GRAB BAR IN THE SHOWER. PT REPORTS HE IS INDEPENDENT WITH ADLS. PT REPORTS HE HAS NOT HAD HH IN THE PAST OR BEEN TO A SNF. PT/OT HAS BEEN ORDERED FOR PT AND EVALS ARE PENDING. CM WILL CONTINUE TO FOLLOW TO ASSIST NEEDED. PT IS HOPEFUL TO RETURN HOME AND IS OPEN TO HH IF NEEDED.
--- NOTE | 2019-04-12 18:28 | NUR ---
pt is A&OX3, pt's vs are stable, pt still has weakness at BLE and back pain, pt's EDELMIRA has done, RN has called dr to report pt's abnormal MRI results, pt refused contrast at MRI, pt has heating pad and pain medications to help back pain, pt's has improved, pt's family stay at pt's bedside now.
[2019-04-13 04:05] VITALS: BP 133/73
[2019-04-13 04:27] LABS: INR 3.6; PROTIME 37.7 Seconds (9.3-11.4)
--- NOTE | 2019-04-13 06:55 | NUR ---
Patient report pain across chest 12/29 at 0215. Provider/ [facility] [facility] [facility] contracted and EKG ran. EKG showed baseline rythym A FIB with HR in 90s. Chest pain lasted about 10 min. No further orders from [facility] [facility] [facility]. Patient rested quietly for the remainder of NOC.
[2019-04-13 07:25] VITALS: BP 149/87
[2019-04-13] MEDS ORDERED: GABAPENTIN 100100 MG PO (09:38)
[2019-04-13] MEDS ORDERED: FLEXERIL PO (09:39)
[2019-04-13] MEDS ORDERED: OXYCODONE HCL10 MG PO (09:44)
[2019-04-13 11:22] VITALS: BP 137/75
[2019-04-13 15:15] VITALS: BP 140/75
--- NOTE | 2019-04-13 16:56 | NUR ---
PT is A&OX3, PT'vs are stable, pt is tolerated back pain ,pt's pain has some improved due to neurology dr order new medications, pt has rehab consult to improve his BLE weakness ,
[2019-04-13 19:30] VITALS: BP 138/74
[2019-04-13 22:07] LABS: IgA 85 mg/dL (61-437); IgG 973 mg/dL (700-1600); IgM 34 mg/dL (15-143)
[2019-04-13 23:55] VITALS: BP 141/63
[2019-04-14 04:13] VITALS: BP 122/65
[2019-04-14 06:12] LABS: INR 2.7; PROTIME 28.4 Seconds (9.3-11.4)
--- NOTE | 2019-04-14 06:23 | NUR ---
Patient is AAOx4 and on RA. Patient's pain managed with hydrocodone and Lidocaine patch. No distress noted during this shift and no acute events occurred.
[2019-04-14 07:11] VITALS: BP 139/84
[2019-04-14 10:56] VITALS: BP 151/82
--- NOTE | 2019-04-14 11:41 | NUR ---
pt is A&OX3, pt still has back pain , RN has reported to DR about po medications do not help pain well, new order received, pt starts Fentanyl 25mcg patch at 1030am. pt's vs are stable at this time.
[2019-04-14 15:23] VITALS: BP 123/67
--- NOTE | 2019-04-14 15:45 | NUR ---
Assumed care approx. 1130 this AM. Patient's family asked for the charge nurse (this RN) as they had concerns. Pts daughter requested a different nurse and asked for the doctor to be called as the patient is in excruciating pain and nothing is helping relieve it. Patient assessed by this RN. Pt due for hydrocodone which was administered shortly after. Dr. Brown made aware of the situation. Dr. Brown dc'd hydrocodone and started oxycodone IR. Oxycodone helped the patient for about a hour. Pt had also been experiencing nausea. IV zofran given which gave pt relief of nausea. Dr. Turcios spoken with about these issues at the time of his rounding. Dr. Turcios gave orders to increase Gabapentin to 900 mg and add remeron [address] Orona at bedside to see patient. Will continue to monitor. Pt not progressing much toward plan of care goals at this time.
[2019-04-14 19:57] VITALS: BP 114/72
[2019-04-15] VITALS (70 sets, daily range): BP systolic 58–142; BP diastolic 29–85
--- NOTE | 2019-04-15 02:18 | NUR ---
PT MAKING POOR PROGRESS TOWARDS GOALS. GIVEN OXYCODONE AT 2230 FOR BACK PAIN 02/28. UPON REASSESSMENT PT DENIED ANY PAIN RELIEF. HE WAS RESTLESS AND ASKING FOR PAIN MEDICATION. DID OBTAIN ORDER FOR FENTANYL IV. DOSE GIVEN. UPON REASSESSMENT PT STATING THAT THE PAIN HAD IMPROVED TO 8/10. PT NOTED TO BE IN AFIB WITH RATES 90-120'S. PT MORE TACHYCARDIC WITH ACTIVITY WITH RATES 140-150'S. HEART RATES BEGAN TO STAY TACHYCARDIC 130-140'S WITH SPIKES INTO THE 160-170 RANGE. PAIN MEDICATION BRIEFLY IMPROVED HEART RATES BACK TO 120'S BUT ONLY BRIEFLY THE HEART RATE SOON STARTED SPIKING AGAIN. DID OBTAIN ORDER FOR ONE TIME IV DOSE OF LOPRESSOR. POST DOSE HEART RATE 90'S TO 110'S.
[2019-04-15 04:46] LABS: BE(vivo) -2.4 mmol/L (-2 to +3); HCO3 26.7 mmol/L (22.0-26.0); PCO2 62.8 mmHg (35.0-45.0); PO2 70.4 mmHg (80.0-100.0)
[2019-04-15 04:47] LABS: pH 7.247 (7.360-7.450)
[2019-04-15 05:19] LABS: INR 2.2; PROTIME 22.8 Seconds (9.3-11.4)
[2019-04-15 05:36] LABS: HEMATOCRIT 49.8 % (42.0-52.0); HEMOGLOBIN 16.3 gm/dL (14.0-18.0); MCH 30.9 pg (26.0-34.0); MCHC 32.6 g/dL (28.0-37.0); MCV 94.9 fL (80.0-100.0); RBC 5.25 mil/uL (4.50-6.00); RDW 13.7 % (10.5-14.5); WBC 14.1 thou/uL (4.0-11.0)
--- NOTE | 2019-04-15 06:14 | NUR ---
pt coded on 3w at 525am. intubated at 0540 and taken to ICU room 245 at 0600. placed on vent upon arrival
--- NOTE | 2019-04-15 06:31 | NUR ---
CODE BLUE ACTIVATED R/T RESPIRATORY FAILURE. PT TRANSFERED TO ICU RM 245. REPORT GIVEN TO JONATHAN INMAN.
--- NOTE | 2019-04-15 06:49 | NUR ---
SPOKE WITH JUST NOW, BRIEFLY RELAYED EVENTS REGARDING PTS TRANSFER TO ICU.
[2019-04-15 07:04] LABS: CREATININE 1.4 mg/dL (0.7-1.3); POTASSIUM 4.9 mmol/L (3.5-5.1)
[2019-04-15 07:08] LABS: ALBUMIN 3.4 g/dL (3.4-5.0); MAGNESIUM 2.2 mg/dL (1.8-2.4); TOTAL BILIRUBIN 1.5 mg/dL (<0.1-1.0); TOTAL PROTEIN 6.2 g/dL (6.4-8.2)
[2019-04-15 07:43] LABS: BE(vivo) -5.9 mmol/L (-2 to +3); HCO3 22.9 mmol/L (22.0-26.0); PO2 255.2 mmHg (80.0-100.0); sO2 99.4 % (92.0-98.0)
[2019-04-15 07:45] LABS: pH 7.221 (7.360-7.450)
--- NOTE | 2019-04-15 07:46 | EKG ---
[place] [address] [employer] [address] ELECTROCARDIOGRAM REPORT Name: SHIRIN CENTENO Room #: 245-P ADM IN M.R.#: [id number] Admission: 04/12/19 Attend Phys: Husam Brown Discharge: Date of : 40 Report #: [id number] THIS REPORT FOR: //name// [facility] Test Date: 2019-04-13 Test Time: 02:26:03 Pat Name: SHIRIN CENTENO Department: Room: [facility] Gender: M Business Proposal Rep: neo : 1940 Requested By: Diana Aguilar Order Number: [id number] MD: Jaya Quintana Measurements Intervals [place] Rate: 97 P: NC: QRS: 114 QRSD: 162 T: -51 QT: 392 QTc: 498 Interpretive Statements Atrial fibrillation Rightward axis, consider RVH Ventricular premature complex Right bundle branch block Baseline wander in lead(s) V2 no previous ECGs available for comparison Electronically Signed On 04-15-2019 7:45:53 [employer]INE by Jaya Quintana [email or web address] <ELECTRONICALLY SIGNED> By: Jaya Quintana MD, [facility] 04/15/19 0745 5 5 Jaya Quintana MD, [facility] /EPI
--- NOTE | 2019-04-15 08:11 | NUR ---
Pt TRANSFERRED TO ICU AFTER CODE BLUE CALLED. WILL PLACE ON HOLD AND AWAIT NEW ORDERS TO RESUME WHEN APPROPRIATE
[2019-04-15 08:41] LABS: HEMATOCRIT 51.4 % (42.0-52.0); HEMOGLOBIN 16.9 gm/dL (14.0-18.0); MCH 31.2 pg (26.0-34.0); MCHC 32.9 g/dL (28.0-37.0); MCV 94.6 fL (80.0-100.0); RBC 5.44 mil/uL (4.50-6.00); RDW 14.2 % (10.5-14.5); WBC 17.8 thou/uL (4.0-11.0)
[2019-04-15 14:04] LABS: BE(vivo) -3.1 mmol/L (-2 to +3); HCO3 22.9 mmol/L (22.0-26.0); PO2 140.3 mmHg (80.0-100.0); pH 7.334 (7.360-7.450); sO2 98.6 % (92.0-98.0)
--- NOTE | 2019-04-15 15:41 | 2DMMODE ---
[facility] [address] [place] [address] 2 D/M-MODE ECHOCARDIOGRAM Name: CENTENOSHIRIN MARSHALL Room #: 245-P ADM IN M.R.#: [id number] Admission: 04/12/19 Attend Phys: Husam Fontenot Discharge: Date of : 40 Report #: [id number] THIS REPORT FOR: //name// APPROVED REPORT Study performed: 04/15/2019 14:19:31 EXAM: Comprehensive 2D, Doppler, and color-flow Echocardiogram Patient Location: ICU Room #: [facility] Status: routine BSA: 1.86 HR: 105 bpm BP: 115/60 mmHg Rhythm: Atrial Fibrillation Other Information Study Quality: Fair Indications Atrial Fibrillation CAD Hypertension/HDD CABG. 2D Dimensions IVSd: 12.12 (7-11mm) LVOT Diam: 18.99 (18-24mm) LVDd: 34.82 mm PWd: 11.84 (7-11mm) Ascending Ao: 31.18 (22-36mm) LVDs: 22.52 (25-40mm) Aortic Root: 28.43 mm IVC: 28.00 mm Aortic Valve AoV Peak Gilberto.: 1.57 m/s AO Peak Gr.: 9.82 mmHg LVOT Max P.02 mmHg LVOT Max V: 1.12 m/s MUMTAZ Vmax: 2.02 cm2 Pulmonary Valve PV Peak Gilberto.: 1.16 m/s PV Peak Gr.: 5.38 mmHg Tricuspid Valve TR Peak Gilberto.: 3.13 m/s TR Peak Gr.: 39.19 mmHg PA Pressure: 54.00 mmHg [facility] [address] [place] [address] 2 D/M-MODE ECHOCARDIOGRAM Name: SHIRIN CENTENO Room #: 245-P [facility] IN ..#: [id number] Admission: 04/12/19 Attend Phys: Husam Fontenot Discharge: Date of : 40 Report #: [id number] Left Ventricle The left ventricle is normal size. There is normal LV segmental wall motion. Mild concentric left ventricular hypertrophy. The left ventricular systolic function is normal. The left ventricular ejection fraction is within the normal range. LVEF is 60-65%. This study is not technically sufficient to allow evaluation of the LV diastolic function due to atrial fibrillation. Right Ventricle Right ventricle is dilated. Right ventricle is hypokinetic. Atria Left atrium is dilated. Right atrium is dilated. Aortic Valve The aortic valve is normal in structure. The Aortic valve is sclerotic. Trace to mild aortic regurgitation. There is no aortic valvular stenosis. Mitral Valve The mitral valve is normal in structure. Mild mitral regurgitation. No evidence of mitral valve stenosis. Tricuspid Valve The tricuspid valve is normal in structure. There is trace to mild tricuspid regurgitation. Estimated PAP 54 mmHg. There is moderate pulmonary hypertension. Pulmonic Valve The pulmonary valve is normal in structure. Trace pulmonic regurgitation. Great Vessels The aortic root is normal in size. The inferior vena cava is dilated with no inspiratory collapse. Pericardium There is no pericardial effusion. <Conclusion> The left ventricle is normal size. LVEF is 60-65%. Right ventricle is dilated. Right ventricle is hypokinetic. [facility] [address] [place] [address] 2 D/M-MODE ECHOCARDIOGRAM Name: SHIRIN CENTENO Room #: 245-P ADM IN M.R.#: [id number] Admission: 04/12/19 Attend Phys: Husam Fontenot Discharge: Date of : 40 Report #: [id number] Left atrium is dilated. Right atrium is dilated. The aortic valve is normal in structure. The Aortic valve is sclerotic. Trace to mild aortic regurgitation. The mitral valve is normal in structure. Mild mitral regurgitation. The tricuspid valve is normal in structure. There is trace to mild tricuspid regurgitation. Estimated PAP 54 mmHg. There is moderate pulmonary hypertension. The pulmonary valve is normal in structure. Trace pulmonic regurgitation. There is no pericardial effusion. <ELECTRONICALLY SIGNED> By: Chirag Alanis MD 04/15/19 1540 [id number] Chirag Alanis MD /INF
--- NOTE | 2019-04-15 17:25 | NUR ---
PT FOLLOWS COMMANDS. LUNGS ARE COARSE THROUGH OUT. AFIB ON THE MONITOR. LEVOPHED DRIP FOR BLOOD PRESSURE. HAS BEEN AT BEDSIDE TODAY FOR SUPPORT AND FAMILY. EXPLAIN VISITING HOURS AND GAVE HER THE CODE OF ICU UNIT AND THE PHONE NUMBER TO CALL FOR HER . SUBRAMANIAN TO DD WITH SHERYL URINE. VS STABLE RESTRATINTS BILATERAL. PAGED IV TEAM AND CONSENT FOR PICC LINE PLACEMENT. KUB DONE AND REPLACED HIS OG TUBE. DUE TO NOT IN PROPER PLACEMENT. WILL CONTINUE TO ASSESS AND MONITOR PER NURSING
--- NOTE | 2019-04-15 18:45 | NUR ---
VASCULAR ACCESS CONSULTED FOR PICC. PT'S LABS,MEDS,HISTORY,ORDER AND CONSENT VERIFIED. ALVAREZ BASILIC WIDELY PATENT WITH USG, 5FR TL POWER PICC TRIMMED TO 44CM INSERTED TO 1CM EXTERNAL. STAT CXR ORDERED. PT TOLERATED WELL.
--- NOTE | 2019-04-15 19:09 | NUR ---
CXR CONFIRMED PICC PLACEMENT. PICC RELEASED FOR IMMEDIATE USE PER PROTOCOL TO JEANNE INMAN
[2019-04-16] VITALS (54 sets, daily range): BP systolic 89–163; BP diastolic 29–89
[2019-04-16 06:30] LABS: BASOPHILS 0.3 % (0.0-2.0); HEMATOCRIT 47.6 % (42.0-52.0); HEMOGLOBIN 15.7 gm/dL (14.0-18.0); MCHC 32.9 g/dL (28.0-37.0); MONOCYTES 10.2 % (1.0-8.0); PLATELET COUNT 203 thou/uL (150-400); POLYS 84.5 % (36.0-66.0); RBC 5.06 mil/uL (4.50-6.00)
[2019-04-16 06:55] LABS: CALCIUM 8.7 mg/dL (8.5-10.1); CREATININE 1.1 mg/dL (0.7-1.3); MAGNESIUM 2.2 mg/dL (1.8-2.4)
[2019-04-16 07:02] LABS: POTASSIUM 3.8 mmol/L (3.5-5.1)
--- NOTE | 2019-04-16 07:29 | NUR ---
PATIENT TRANSFERRED TO ICU AFTER CODE BLUE CALL. WILL AWAIT NEW OT ORDERS ONCE PATIENT IS MEDICALLY STABLE.
--- NOTE | 2019-04-16 09:56 | NUR ---
If unable to extubate in next 24-8 hr, recommend start enteral nutrition of vital AF 1.2 at goal 65ml/hr
[2019-04-16 10:12] LABS: BE(vivo) -1.4 mmol/L (-2 to +3); PCO2 48.1 mmHg (35.0-45.0); PO2 120.6 mmHg (80.0-100.0); pH 7.334 (7.360-7.450); sO2 98.1 % (92.0-98.0)
--- NOTE | 2019-04-16 17:22 | NUR ---
PT EXTUBATIED TODAY. OXYGEN SATURATATION IS 97 PERCENT ON NASAL CANULA 2 LITERS. BLOOD PRESSURE IS STABLE. A FIB ON THE MONITOR. PT IS ALERT AND ORIENTED X4. LUNGS ARE COARSE. SUBRAMANIAN TO DD WITH SHERYL URINE. COMPLAINS OF BACK PAIN AND MEDS ADMINISTERED SEE MAR FOR TIME OF ADMINISTRATION. WILL CONTINUE ONGOING NURSING CARE AT THIS TIME
[2019-04-17] VITALS (64 sets, daily range): BP systolic 81–136; BP diastolic 21–90
[2019-04-17 07:07] LABS: HEMATOCRIT 44.3 % (42.0-52.0); HEMOGLOBIN 14.7 gm/dL (14.0-18.0); MCH 31.3 pg (26.0-34.0); MCHC 33.2 g/dL (28.0-37.0); MCV 94.3 fL (80.0-100.0); RBC 4.7 mil/uL (4.50-6.00); RDW 14.3 % (10.5-14.5); WBC 7.9 thou/uL (4.0-11.0)
[2019-04-17 07:11] LABS: CALCIUM 9.1 mg/dL (8.5-10.1); CREATININE 0.8 mg/dL (0.7-1.3); MAGNESIUM 2.2 mg/dL (1.8-2.4); POTASSIUM 4.1 mmol/L (3.5-5.1)
--- NOTE | 2019-04-17 10:44 | NUR ---
FOLLOWING FOR DC PLANNING. CLINICAL INFO REVIEWED. PT REQUIRED INTUBATION AND ICU TRANSFER ON 04/15. EXTUBATED 05/16. 5N WAS FOLLOWIING APPEARS WILL NEED REHAB PRIOR TO RETURNING HOME WITH SPOUSE. PT/OT RESUMED TODAY.
--- NOTE | 2019-04-17 18:28 | NUR ---
ASSUMED CARE @ 0700 04/17/19, PT ASSESSMENTS AND VSS COMPLETE PER ICU PROTOCOL. PT OFF LEVOPHED @ 1500, PER DR EARL RECOMMENDATION PT CAN BE CHANGED TO MED-SURG TELE STATUS. ORDERS PUT IN FOR TRANSFER, PT INFORMED, WILL CONTINUE TO MONITOR.
[2019-04-18] VITALS (29 sets, daily range): BP systolic 17–121; BP diastolic 44–74
[2019-04-18 05:41] LABS: HEMATOCRIT 41.8 % (42.0-52.0); HEMOGLOBIN 13.6 gm/dL (14.0-18.0); MCH 30.9 pg (26.0-34.0); MCHC 32.6 g/dL (28.0-37.0); MCV 94.7 fL (80.0-100.0); RBC 4.41 mil/uL (4.50-6.00); RDW 14.4 % (10.5-14.5); WBC 5.5 thou/uL (4.0-11.0)
[2019-04-18 05:51] LABS: ALBUMIN 2.6 g/dL (3.4-5.0); CALCIUM 8.7 mg/dL (8.5-10.1); CREATININE 0.8 mg/dL (0.7-1.3); MAGNESIUM 2.5 mg/dL (1.8-2.4); POTASSIUM 4.3 mmol/L (3.5-5.1); TOTAL BILIRUBIN 0.8 mg/dL (<0.1-1.0); TOTAL PROTEIN 5.8 g/dL (6.4-8.2)
[2019-04-18 10:03] LABS: INR 1.4; PROTIME 14.7 Seconds (9.3-11.4)
--- NOTE | 2019-04-18 14:12 | NUR ---
Nurse, upon assessment, changed patients weight to original weight for the IV heparin gtt. With this, a new APTT was drawn. The APTT level was treated per the standing orders for heparin. There will be another APTT drawn at 1900 tonight. Patient vital signs stable, see documentation. Report was called to RN on CCU for transfer to their unit. Patient was educated on current treatments and goals were evaluated. Patient is eager to get stronger in order to go back home to his . Nurse did note patient chokes on his regular food at breakfast time. This was relayed to primary physician who also noted. When physician noted the coughing with food, he asked the patient if it feels like the food was going down wrong. Patient replied by saying that it did feel as if the food was not going down correctly. His food consistency was changed to pureed diet with thin liquids. A swallow evaluation, per physician, may need to be performed. No orders at this time for swallow evaluation. Patient was transfered to CCU with all belongings, as per patient report.
--- NOTE | 2019-04-18 18:43 | NUR ---
PT TRANSFERED FROM ICU. ALERT AND ORIENTED. NO CARDIAC OR RESPIRATORY DISTRESS NOTED. UP IN THE CHAIR. NO CONCERNS AT THIS TIME. WILL CONTINUE TO MONITOR.
--- NOTE | 2019-04-19 04:21 | NUR ---
pt resting quietly in bed thru the noc, turning as needed, prn pain med given for c/o back pain, vss, reed with clear yellow urine, heparin gtt infusing in picc, labs drawn this am, will con't to monitor per ppoc.
[2019-04-19 04:46] VITALS: BP 127/80
[2019-04-19 07:00] VITALS: BP 128/55
[2019-04-19 07:36] LABS: ABSOLUTE NEUTROPHILS 8.4 thou/uL (1.4-8.2); BASOPHILS 0.2 % (0.0-2.0); HEMATOCRIT 41.5 % (42.0-52.0); HEMOGLOBIN 13.5 gm/dL (14.0-18.0); LYMPHOCYTES 3.2 % (24.0-44.0); MCH 31.3 pg (26.0-34.0); MCHC 32.6 g/dL (28.0-37.0); MCV 95.7 fL (80.0-100.0); MONOCYTES 4.3 % (1.0-8.0); PLATELET COUNT 187 thou/uL (150-400); POLYS 92.3 % (36.0-66.0); RBC 4.34 mil/uL (4.50-6.00); RDW 14.3 % (10.5-14.5); WBC 9.1 thou/uL (4.0-11.0)
[2019-04-19 08:06] LABS: INR 1.3; PROTIME 13.1 Seconds (9.3-11.4)
[2019-04-19 11:00] VITALS: BP 126/55
[2019-04-19 14:11] LABS: CSF CLARITY CLEAR; CSF COLOR COLORLESS; CSF WBC 3 /mm3 (0-10)
[2019-04-19 14:12] LABS: CSF RBC 0 /mm3; VOLUME 17.5 ml
[2019-04-19 16:17] VITALS: BP 128/70
[2019-04-19 19:09] VITALS: BP 140/69
--- NOTE | 2019-04-19 19:18 | NUR ---
PT ALERT AND ORIENTED. VSS. HAD SPINAL TAP THIS SHIFT. HEPARIN DRIP STOPPED FOUR HOURS BEFORE THE SPINAL TAP. ORDERS GIVEN BY DR. EARL TO RESTART HEPARIN DRIP FOUR HOURS AFTER THE EDILBERTO TAP. PHARMACY NOTIFIED. PT REPORT NOT BEING ABLE TO HAVE A BM FOR [address] EARL NOTIFIED. ORDERS RECEIVED. PRN PAIN MED GIVEN WITH PARTIAL RELIEF. AT THE BEDSIDE. WILL CONTINUE TO MONITOR.
--- NOTE | 2019-04-19 21:07 | NUR ---
[facility] called for increase soa and tachycardia. See [facility] flowsheet.
[2019-04-19 23:10] LABS: SERUM ALBUMIN 3.3 g/dL (3.5-4.8)
[2019-04-20 00:05] VITALS: BP 108/61
[2019-04-20 03:41] VITALS: BP 93/58
[2019-04-20 04:08] LABS: HEMOGLOBIN 13.4 gm/dL (14.0-18.0); MCH 30.9 pg (26.0-34.0); MCHC 32.7 g/dL (28.0-37.0); MCV 94.6 fL (80.0-100.0); PLATELET COUNT 183 thou/uL (150-400); RBC 4.33 mil/uL (4.50-6.00); RDW 14.3 % (10.5-14.5); WBC 11.7 thou/uL (4.0-11.0)
[2019-04-20 04:18] LABS: ALBUMIN 2.5 g/dL (3.4-5.0); CALCIUM 8.3 mg/dL (8.5-10.1); CREATININE 0.9 mg/dL (0.7-1.3); POTASSIUM 4.2 mmol/L (3.5-5.1); TOTAL PROTEIN 6.1 g/dL (6.4-8.2)
[2019-04-20 07:00] VITALS: BP 106/50
[2019-04-20 07:39] LABS: ABSOLUTE NEUTROPHILS 10.3 thou/uL (1.4-8.2)
--- NOTE | 2019-04-20 10:03 | EKG ---
[address] [employer] [place] [address] ELECTROCARDIOGRAM REPORT Name: SHIRIN CENTENO Room #: 210-P ADM IN M.R.#: [id number] Admission: 04/12/19 Attend Phys: Husam Brown Discharge: Date of : 40 Report #: [id number] THIS REPORT FOR: //name// [facility] Test Date: 2019-04-19 Test Time: 19:38:01 Pat Name: SHIRIN CENTENO Department: Room: 210 P Gender: M Learning Development Specialist: Mary SMITH : 1940 Requested By: Husam Brown Order Number: [id number] MD: Jaya Quintana Measurements Intervals [place] Rate: 109 P: AL: QRS: 31 QRSD: 162 T: 205 QT: 368 QTc: 496 Interpretive Statements Atrial fibrillation Right bundle branch block Compared to ECG 04/13/2019 02:26:03 Ventricular premature complex(es) no longer present Electronically Signed On 04-20-2019 10:02:52 FLASH RANGING CREWMEMBER by Jaya Quintana [email or web address] <ELECTRONICALLY SIGNED> By: Jaya Quintana MD, [facility] 04/20/19 [facility] 37 37 Jaya Quintana MD, FACC /EPI
[2019-04-20 11:00] VITALS: BP 101/52
[2019-04-20 16:00] VITALS: BP 126/53
--- NOTE | 2019-04-20 16:34 | NUR ---
PT CARE ASSUMED APPROX 0700. ASSESSMENT CHARTED. PT REPORTS ADEQUATE PAIN MANAGEMENT OF CHRONIC BACK PAIN. DENIES SOA. VSS. UP TO SIDE OF BED INDEPENDENTLY. STOOD UP WITH P/T. PT REPORTS FEELING STRONGER AND MORE STEADY. PT TOLERATING POC AND TOLERATING CHANGES MADE TO POC. DENIES QUESTIONS OR CONCERNS REGARDING POC. NO DISTRESS NOTED.
[2019-04-20 19:03] VITALS: BP 122/68
[2019-04-21 03:21] VITALS: BP 138/71
[2019-04-21 07:30] LABS: HEMATOCRIT 44.9 % (42.0-52.0); HEMOGLOBIN 14.7 gm/dL (14.0-18.0); MCH 31.1 pg (26.0-34.0); MCHC 32.7 g/dL (28.0-37.0); MCV 95.3 fL (80.0-100.0); RBC 4.71 mil/uL (4.50-6.00); RDW 14.2 % (10.5-14.5); WBC 8.2 thou/uL (4.0-11.0)
--- NOTE | 2019-04-21 07:57 | NUR ---
assume care 1900. pt/vitals stable. intermittent pain noted. tolerates activity moderately. up to chair with 1 assist and walker. generalized weakness noted. respiratory function improving. plan is continue to treat with antibiotic and medicate with immuno G. will continue to monitor and follow with poc
[2019-04-21 08:00] VITALS: BP 128/64
--- NOTE | 2019-04-21 10:32 | NUR ---
PICC LINE NOTED IN XRAY TO BE MALPOSITIONED - AWAITING CALL BACK FROM DR. EARL TO SEE IF PICC REPLACEMENT IS NEEDED OR IF LINE CAN BE PULLED AND PERIPHERAL LINE PLACED
[2019-04-21 11:40] VITALS: BP 114/85
--- NOTE | 2019-04-21 16:25 | NUR ---
PT CARE ASSUMED APPROX 0700. ASSESSMENT CHARTED. PT DENIES SOA. REPORTS ADEQUATE PAIN MANAGEMENT OF LOWER BACK PAIN. VSS. UP WITH MIN ASSIST, WALKER, GAITBELT. DENIES QUESTIONS OR CONCERNS REGARDING POC. TOLERATING POC CHANGES NOTED THIS SHIFT. UP TO CHAIR MOST OF SHIFT. PICC NURSE PULLED PICC LINE BACK TO MIDLINE. NO S/S OF ASPIRATION. PT REPORTS FEELING STRONGER. NO DISTRESS NOTED THIS SHIFT.
[2019-04-21 16:55] VITALS: BP 121/74
[2019-04-21 20:15] VITALS: BP 138/81
[2019-04-22 04:08] LABS: ABSOLUTE NEUTROPHILS 8.3 thou/uL (1.4-8.2); BASOPHILS 0.1 % (0.0-2.0); EOSINOPHILS 0.1 % (0.0-3.0); HEMOGLOBIN 13.1 gm/dL (14.0-18.0); LYMPHOCYTES 3.4 % (24.0-44.0); MCH 30.6 pg (26.0-34.0); MCV 95.7 fL (80.0-100.0); MONOCYTES 5.2 % (1.0-8.0); PLATELET COUNT 169 thou/uL (150-400); POLYS 91.2 % (36.0-66.0); RBC 4.29 mil/uL (4.50-6.00); RDW 14.2 % (10.5-14.5); WBC 9.1 thou/uL (4.0-11.0)
[2019-04-22 04:45] VITALS: BP 112/74
--- NOTE | 2019-04-22 04:49 | NUR ---
ASSUMED PT CARE AROUND 1900. A&OX4. PT IS VERY PLEASANT AND COOPERATIVE. C/O BACK PAIN. PAIN MEDICATION GIVEN WITH SOME RELIEF. PT SAT UP IN THE CHAIR FOR A FEW HOURS AT BEGINNING OF SHIFT. TOLERATED WELL. PT SLEPT MOST OF THE NIGHT. RESP EVEN AND UNLABORED. FALL PRECAUTIONS IN PLACE. PROGRESSING SLOWLY TOWARD POC GOALS.
[2019-04-22 07:54] VITALS: BP 118/76
--- NOTE | 2019-04-22 12:55 | NUR ---
PATIENT WILL BE HAVING 5 DAYS OF IV IG, SO IS NOT READY FOR ACUTE REHAB AT THIS TIME. LAST DOSE WILL BE MONDAY, APR 24. WILL CONTINUE TO FOLLOW AND REQUEST AUTH WHEN MEDICALLY STABLE AND CLOSE TO D/C. THANK YOU FOR THIS REFERRAL.
[2019-04-22 13:07] LABS: CSF IgG 5.2 mg/dL (0.0-8.6)
[2019-04-22 16:19] VITALS: BP 121/72
[2019-04-22 21:30] VITALS: BP 129/70
--- NOTE | 2019-04-23 05:03 | NUR ---
ASSUMED PT CARE AROUND 1900. PT SITTING IN CHAIR AND C/O NO N/V/D. DID STATE THAT HE WOULD LIKE SOMETHING TO HELP WITH BM FOR TMRW. PT C/O PAIN GIVEN PAIN MEDICATION WHICH PROVIDED PARTIAL RELIEF. PT STILL WEAK AND ABLE TO PIVOT INTO BED. PT SLEPT INTERMITTANTLY THRU NIGHT. WILL CONTINUE TO MONITOR PT PER POC.
[2019-04-23 05:37] VITALS: BP 134/80
[2019-04-23 07:56] VITALS: BP 132/83
[2019-04-23] MEDS ORDERED: SENNA-TIME S T1 EACH PO (09:02)
[2019-04-23] MEDS ORDERED: ELIQUIS5 MG PO (09:02)
[2019-04-23] MEDS ORDERED: DIGOXIN250 MCG PO (09:02)
[2019-04-23] MEDS ORDERED: LIPITOR10 MG PO (09:02)
[2019-04-23] MEDS ORDERED: PEPCID20 MG PO (09:02)
[2019-04-23] MEDS ORDERED: AUGMENTIN 500-1 EACH PO (09:02)
[2019-04-23] MEDS ORDERED: HYDROCODON-ACE1 EAC7 PO (09:02)
[2019-04-23 11:04] LABS: FOLIC ACID 4.9 ng/mL (8.6-58.9)
--- NOTE | 2019-04-23 12:40 | NUR ---
I have reviewed the documentation by CHRISTIN FAUST from 04/23/19 to 04/23/19 and I concur with it. HAILEY JORGE
--- NOTE | 2019-04-23 13:40 | NUR ---
spoke with patient and . Discussed [facility] and process with insurance auth. Both are hopeful patient can transition to 5[facility] acute rehab. has skilled list but no facility chosen for option.
--- NOTE | 2019-04-23 16:05 | NUR ---
COMPUTED TOMOGRAPHY SCANNER OPERATOR RECEIVED NOTICE THAT PATIENT WAS READY FOR ADMISSION TO REHAB. INSURANCE CONTACTED AND AUTHORIZATION REQUESTED. WILL AWAIT RESPONSE FROM INSURANCE COMPANY. THANK YOU FOR THIS REFERRAL.
[2019-04-23 17:04] VITALS: BP 124/75
--- NOTE | 2019-04-23 17:06 | NUR ---
ASSUMED CARE AT SHIFT CHANGE, ALERT AND ORIENTED X4. VSS, AFIB/BBB ON THE MONITOR. DENIES ANY DISCOMFORT TODAY, AND PATIENT PROGRESSING TOWARDS GOALS SLOWLY. STRENGTH GRACE PATIENT WAS ABLE TO GET UP WITH A MINIMUM HELP. PLAN: TRANSFER TO REHAB [facility]
[2019-04-23 19:49] VITALS: BP 125/87
--- NOTE | 2019-04-24 06:44 | NUR ---
RESUMED PATIENT CARE AT 1900, PATIENT IS A/OX4, COMPLAINED OF PAIN IN HIS BACK, MEDICATED PRN, AFIB/ BBB ON THE MONITOR, RESTED WELL, WILL CONTINUES TO MONITOR
[2019-04-24 08:00] VITALS: BP 112/73
--- NOTE | 2019-04-24 10:01 | NUR ---
patient to dc to [facility] today. [facility] rec auth from insurance. updated patient and
[2019-04-24 11:30] VITALS: BP 99/69
--- NOTE | 2019-04-24 13:16 | NUR ---
I have reviewed the documentation by CHRISTIN FAUST from 04/24/19 to 04/24/19 and I concur with it. HAILEY JORGE
--- NOTE | 2019-04-24 14:45 | NUR ---
ASSUMED CARE AT SHIFT CHANGE, ALERT AND ORIENTED X4. VSS AND AFEBRILE. AFIB/BBB. PATIENT IS LOOKING FORWARD TO GO TO REHAB. REPORT GIVEN TO YIN AND PATIENT DISCHARGED TO N.
--- NOTE | 2019-04-25 12:06 | PATH ---
[facility] [address] [place] [address] PATHOLOGY RPT PROCEDURE Name: SHIRIN CENTENO Room #: 210-P [facility] IN M.R.#: [id number] Admission: 04/12/19 Date of : 40 Discharge: 04/24/19 Report #: [id number] Path Case #: [id number] Note [facility] Accession Number: [id number] TESTS RESULT FLAG UNITS REF RANGE LAB Clinician Provided Cytology Information No. of containers..01 Other (Miscellaneous) Source: CSF DIAGNOSIS: 02 CSF NEGATIVE FOR MALIGNANT CELLS. SCANT CELLULARITY. RARE LYMPHOCYTES IDENTIFIED. NEGATIVE FOR VIRAL INCLUSIONS OR PARASITIC ORGANISMS. Signed out by: Sisi Cantu MD, Pathologist NPI- [id number] Performed by: Esther Zhang, Sales And Distribution Clerk ([facility]) Gross description: 01 5 ML, CLEAR, COLORLESS /LCS 05/21/1840 0000 Local FLAG LEGEND: L-Low Normal,H-High Normal,LL-Alert Low,HH-Alert High <-Panic Low,>-Panic High,A-Abnormal,AA-Critical Abnormal Performed at: [address] [place] [address] George Hollis MD, [address] [address] Sisi Cantu MD, Specimen Comment: A courtesy copy of this report has been sent to [phone] Specimen Comment: [id number] Specimen Comment: Report sent to Specimen Comment: A duplicate report has been generated due to demographic updates. Performed at: [address], [place], [place] [id number] MD George Hollis MD Phone: [phone]
--- NOTE | 2019-04-26 16:25 | HC ---
[facility] [place] [address] [place] [address] CONSULTATION Name: SHIRIN CENTENO Room #: 210-P [facility] IN M.R.#: [id number] Admission: 04/12/19 Attend Phys: Husam Brown Discharge: 04/24/19 Date of : 40 Report #: [id number] THIS REPORT FOR: //name// CC: Husam Brown Maximo Brasherjuliette DATE OF SERVICE: 04/15/2019 HISTORY OF PRESENT ILLNESS: The patient is a 78-year-old male who was admitted from [facility] with back pain, neck pain and bilateral lower extremity weakness. He was noted to have a couple of falls. The patient had been a premorbid independent ambulator without gait aids and just over the last few days he did start utilizing a cane. He was noted to have multilevel degenerative arthritis upon MRI scanning of his entire spine. He was noted to have advanced lumbar levoscoliosis, but not bad enough to explain his weakness and ataxia. 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 Lumbar puncture was being considered, although his INR was too high with his anticoagulation for chronic atrial fibrillation. He had not been able to ambulate with therapy. It was during this period of his workup when he then had a code blue with episode of slow heart rate, thready pulse, hypotension. He has now undergone mechanical ventilation, noted to be unresponsive in the intensive care unit. We have been consulted regarding rehabilitation issues. PAST MEDICAL HISTORY: Includes coronary artery disease, status post stenting, prior coronary artery bypass grafting, history of hypertension, chronic atrial fibrillation, on anticoagulation, history of suspected osteo on antibiotics, multi joint degenerative arthritis. He had a prior right total shoulder surgery, hypertension. MEDICATIONS: Please see the full medication listing. ALLERGIES: No known drug allergies. SOCIAL HISTORY: Lives in a house with his , no steps in, but 12 steps inside to the basement. He only started utilizing a cane recently. 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 He typically is alone at home. HABITS: Former smoker, quit greater than a year ago, past history of alcohol usage, but has not drank in multiple decades. REVIEW OF SYSTEMS: Unable to assess. PHYSICAL EXAMINATION: GENERAL: A 78-year-old white male seen in the intensive care unit. NEUROLOGIC: He is currently mechanically ventilated. He is not responsive at [address] [place] [address] CONSULTATION Name: TARYNSHIRIN MARSHALL Room #: 210-P [facility] IN M.R.#: [id number] Admission: 04/12/19 Attend Phys: Husam Brown Discharge: 04/24/19 Date of : 40 Report #: [id number] this time. EXTREMITIES: Upper extremities and lower extremities revealed functional range of motion. I was unable to assess volitional strength. Tone appeared decreased overall. Unable to assess sensation. No focal calf swelling. No significant distal lower extremity edema. ASSESSMENT: A 78-year-old white male with the following problem list: 1. Ataxia with falls, thought secondary to be Guillain-[place] syndrome versus chronic inflammatory demyelinating polyneuropathy versus incomplete Calvo Mendez variant. 2. Atrial fibrillation with bradycardia. Maria D forde, now mechanically ventilated in the ICU. 3. Hypotension of unclear etiology. 4. Chronic back and neck pain. 5. Hyperlipidemia. 6. Coronary artery disease with prior stenting and coronary artery bypass grafting. 7. Benign prostatic hypertrophy. PLAN: Continues in the current ICU management post-maria d forde with his bradycardia. We will be glad to follow along with you regarding rehab therapy issues as he further medically stabilizes. <ELECTRONICALLY SIGNED> By: Jayson Montelongo MD 04/26/19 1625 1152 [id number] Jayson Montelongo MD /[facility]
== END 2019-04-24 14:58 | DRG 94 ==
LOC: 3W 00:54 → 2N 01:38 → 3W 01:38 → ICU 01:38 → 2N 04-18 13:43 → ENTRNSPT 04-24 14:15 → EDTRNSPTSTS 04-24 14:29 → 2N 04-24 14:58
PROVIDERS: Internal Medicine Pulmonary Disease; Nurse Practitioner Acute Care; Nurse Practitioner Family; Psychiatry & Neurology Neurology; Psychiatry & Neurology Neuromuscular Medicine; ADMIT Hospitalist
PROC: 5A1945Z Respiratory Ventilation, 24-96 Consecutive Hours (ICD-10-PCS; principal; 2019-04-15)
PROC: 0BH17EZ Insertion of Endotracheal Airway into Trachea, Via Natural or Artificial Opening (ICD-10-PCS; principal; 2019-04-15)
PROC: 009U3ZX Drainage of Spinal Canal, Percutaneous Approach, Diagnostic (ICD-10-PCS; 2019-04-19)
PROC: 05HC33Z Insertion of Infusion Device into Left Basilic Vein, Percutaneous Approach (ICD-10-PCS; 2019-04-21)
DX: G61.0 Guillain-Barre syndrome (principal); J96.01 Acute respiratory failure with hypoxia; J96.02 Acute respiratory failure with hypercapnia; N18.6 End stage renal disease; I48.20 Chronic atrial fibrillation, unspecified; F11.20 Opioid dependence, uncomplicated; J91.8 Pleural effusion in other conditions classified elsewhere; I48.21 Permanent atrial fibrillation; I12.0 Hypertensive chronic kidney disease with stage 5 chronic kidney disease or end stage renal disease; I25.10 Atherosclerotic heart disease of native coronary artery without angina pectoris; M19.90 Unspecified osteoarthritis, unspecified site; R27.0 Ataxia, unspecified; I95.9 Hypotension, unspecified; M54.9 Dorsalgia, unspecified; M54.2 Cervicalgia; E78.5 Hyperlipidemia, unspecified; N40.0 Benign prostatic hyperplasia without lower urinary tract symptoms; E53.8 Deficiency of other specified B group vitamins; E78.00 Pure hypercholesterolemia, unspecified; G47.00 Insomnia, unspecified; M48.061 Spinal stenosis, lumbar region without neurogenic claudication; D64.9 Anemia, unspecified; G62.9 Polyneuropathy, unspecified; H53.2 Diplopia; R27.8 Other lack of coordination; G89.4 Chronic pain syndrome; K59.00 Constipation, unspecified; Z95.5 Presence of coronary angioplasty implant and graft; Z95.1 Presence of aortocoronary bypass graft; Z87.891 Personal history of nicotine dependence; Z90.49 Acquired absence of other specified parts of digestive tract; Z80.9 Family history of malignant neoplasm, unspecified; I25.2 Old myocardial infarction; Z79.01 Long term (current) use of anticoagulants; Z23 Encounter for immunization
CPT/HCPCS: 10078; 10081; 10194; 10203; 10879; 27000

== ENCOUNTER 2019-04-24 11:36 | Inpatient (IN) | payer OTHER ==
[~2019-04-24] VITALS: Ht 170.2 cm; Wt 74.8 kg
[~2019-04-24 11:36] MED LIST changes: +AUGMENTIN 500-1 EACH PO; +DIGOXIN250 MCG PO; +ELIQUIS5 MG PO; +FLEXERIL PO; +GABAPENTIN 100100 MG PO; +HYDROCODON-ACE1 EAC7 PO; +LIPITOR10 MG PO; +OXYCODONE HCL10 MG PO; +PEPCID20 MG PO; +SENNA-TIME S T1 EACH PO
--- NOTE | 2019-04-24 15:46 | NUR ---
PT ARRIVED AT 1445 FROM CCU. ALERT AND ORIENTED *4. C/O LOW BACK AND LEFT LOWER EXTREMITY PAIN, 5/10. PAIN MED GIVEN PRIOR TO DC FROM CCU. VITALS ARE STABLE. PEDAL PULSES NORMAL. BRUISING AND SCABS ON ARMS, REDNESS AROUND SACRAL AREA. PT UP WITH 1 MOD ASSIST, GB AND WALKER AND TOLERATED WELL. Q1H VISUAL CHECKS. CALL LIGHT WITHIN REACH. FALL PRECAUTIONS IN PLACE
[2019-04-24 19:00] VITALS: BP 108/69
--- NOTE | 2019-04-25 01:24 | NUR ---
PT ALERT AND ORIENTED X 4. TRANSFERRED TO BED AT WITH ASSIST X 1. LEFT MIDLINE IV INTACT. ABDOMEN DISTENDED AND SOFT. BS X 4. PT C/O PAIN IN HIS BACK. REFUSED PAIN MEDS. BED ALARM ON FOR SAFETY. PT APPEARS TO BE SLEEPING ON HOURLY ROUNDS.
[2019-04-25 05:35] VITALS: BP 111/61
[2019-04-25 06:07] LABS: HEMATOCRIT 43.4 % (42.0-52.0); HEMOGLOBIN 14.3 gm/dL (14.0-18.0); MCH 31.2 pg (26.0-34.0); MCV 94.5 fL (80.0-100.0); RBC 4.59 mil/uL (4.50-6.00); RDW 14.1 % (10.5-14.5); WBC 11.4 thou/uL (4.0-11.0)
[2019-04-25 06:17] LABS: CALCIUM 8.9 mg/dL (8.5-10.1); CREATININE 0.7 mg/dL (0.7-1.3); POTASSIUM 4.5 mmol/L (3.5-5.1)
[2019-04-25 09:30] VITALS: BP 105/65
--- NOTE | 2019-04-25 12:29 | NUR ---
ASSUMED CARES AT 0700. PT AWAKE, ALERT AND ORIENTED*4. C/O BACK AND LEFT LOWER EXTREMITY PAIN, HYDROCODONE ADMINISTERED NEEDED. ABDOMEN REMAINS DISTENDED, MAG CITRATE ADMINISTERED ORDERED, NO RESULTS YET. MIDLINE ON RIGHT UPPER ARM REMAINS INTACT AND PATENT. P HAS HEMORRHOIDS THAT WERE BLEEDING THIS AM, ORDERS RECEIVED FROM PREP H AND SUPP. PT UP WITH 1 MOD ASSIST, SHAKINESS AND UNSTEADY GAIT NOTED WITH TRANSFERS. Q1H VISUAL CHECKS. CALL LIGHT WITHIN REACH. FALL PRECAUTIONS IN PLACE
[2019-04-25 14:58] VITALS: BP 97/56
--- NOTE | 2019-04-25 15:08 | NUR ---
chart review, pt up in recliner chair, tried to visit with pt x 2, either working with therapy and now up in recliner chair with bedside assessment rt pt reported not feeling well. HEEL BUILDER MACHINE here for visit as well. will cont following as needed for dcp. per chart pt lives with in house, 12 steps with hr. has cane, walker, grab bar in shower. no mention of past hh or rehab.
[2019-04-25 20:03] VITALS: BP 94/59
--- NOTE | 2019-04-26 01:23 | NUR ---
PT ALERT AND ORIENTED X 4. AMB TO BR WITH WALKER AND ASSIST X 1. IV INFUSING ORDERED. VOIDING WITHOUT DIFFICULTY. PT CONTINUES WITH RECTAL BLEEDING. HAD SMALL AMT BRIGHT RED BLOOD AT 2130. PT C/O PAIN IN HIS BACK. HYDROCODONE GIVEN AT HS WITH PARTIAL PAIN RELIEF NOTED. PT TRIED TO SLEEP IN BED FOR A WHILE BUT IS NOW IN CHAIR. STATES BED IS TOO UNCOMFORTABLE. CHAIR ALARM ON FOR SAFETY. PT APPEARS TO BE SLEEPING ON HOURLY ROUNDS.
[2019-04-26 05:54] LABS: HEMATOCRIT 41.3 % (42.0-52.0); HEMOGLOBIN 13.8 gm/dL (14.0-18.0); MCH 31.6 pg (26.0-34.0); MCHC 33.4 g/dL (28.0-37.0); MCV 94.5 fL (80.0-100.0); PLATELET COUNT 156 thou/uL (150-400); RBC 4.37 mil/uL (4.50-6.00); RDW 13.9 % (10.5-14.5); WBC 9.1 thou/uL (4.0-11.0)
[2019-04-26 06:01] LABS: CALCIUM 8.5 mg/dL (8.5-10.1); CREATININE 0.6 mg/dL (0.7-1.3); MAGNESIUM 2.5 mg/dL (1.8-2.4); POTASSIUM 4.3 mmol/L (3.5-5.1)
--- NOTE | 2019-04-26 07:37 | NUR ---
PT C/O CONSTANT PAIN IN BACK. REPORTS NO RELIEF WITH HYDROCODONE. UVALDO NORMAN NP CALLED WITH ORDER RECEIVED TO GIVE AN EXTRA HYDROCODONE THIS MORNING. MEDICATION GIVEN ORDERED. PT REPORTED PAIN SCALE FROM 10 TO 6 AFTER EXTRA MED GIVEN.
[2019-04-26 07:50] VITALS: BP 93/55
[2019-04-26 13:10] LABS: ABSOLUTE NEUTROPHILS 7.7 thou/uL (1.4-8.2)
--- NOTE | 2019-04-26 14:15 | NUR ---
ASSUMED CARE AT 0700. PATIENT IS ALERT AND ORIENTED X4. PATIENT RODRIGUEZ'S, INSPECTION ENGINEER ARE EQUAL. LUNGS ARE CLEAR. ABD IS SOFT WITH BSX4. NS INFUSING AT 100 CC/HR. PER MID LINE IN LEFT ARM. IV SITE IS WITHOUT REDNESS OR SWELLING. PATIENT IS IS UP WITH ASSIST OF 1 STAFF WITH GAIT BELT AND WALKER. UP IN W/C FOR MEALS. FALL AND SAFETY PROTOCOLS IN PLACE. C/O HIP PAIN. MEDICATED WITH PRN PAIN MED. CONTINUES TO PROGRESS SLOWLY TOWARDS D/C GOALS. WILL CONTINUE TO MONITER.
[2019-04-26 19:00] VITALS: BP 104/50
[2019-04-27 00:30] VITALS: BP 82/45
--- NOTE | 2019-04-27 03:42 | NUR ---
assumed care at approx 1900 evening 04/26. pt alert and oriented x4, appropriate and cooperative. pt sitting up in recliner at change of shift and pt states he does not feel comfortable in bed and prefers sleeping in chair. BP low and bolus given as ordered. pt given pain meds for back pain as ordered. pt appears to be sleeping soundly off and on. chair alarm on and call light in reach. will continue to monitor.
[2019-04-27 05:53] VITALS: BP 96/49
--- NOTE | 2019-04-27 09:40 | NUR ---
ASSUMED CARE AT 0700. PATIENT IS ALERT AND ORIENTED X4. PATIENT IS UP IN HIS CHAIR. PATIENT RODRIGUEZ'S, VACUUM DRIER TENDER ARE EQUAL. LUNGS ARE CLEAR. ABD IS SOFT WITH BSX4. VOIDED 400CC OF DARK SHERYL COLORED URINE PER URINAL. PATIENT HAS MIDLINE IN HIS LEFT AC. IVF, NS INFUSING AT 100CC/HR. PATIENT HAS +1 L.E. EDEMA BILATERALLY. ENCOURAGED PATIENT TO ELEVATE HIS FEET WHEN UP IN THE RECLINER. FALL AND SAFETY PROTOCOLS IN PLACE. DENIES PAIN AT THIS TIME. CONTINUES TO PROGRESS SLOWLY TOWARDS D/C GOALS. WILL CONTINUE TO MONITER.
[2019-04-27 10:28] VITALS: BP 91/52
[2019-04-27 19:26] VITALS: BP 100/52
--- NOTE | 2019-04-28 01:48 | NUR ---
assumed care at approx 1900 evening 04/27. pt sitting up in recliner at change of shift, alert and oriented x4, appropriate and cooperative. pt prefers to sleep in recliner rather than bed. pt took hs meds with water tolerating well. IVF infusing per orders. pt appears to be sleeping soundly with hourly rounding. bed alarm on and call light in reach. will continue to monitor.
[2019-04-28 08:02] VITALS: BP 96/54
--- NOTE | 2019-04-28 15:58 | NUR ---
PT ALERT AND ORIENTED TIMES FOUR. VSS, 94%RA. PT DENIES PAIN/SOA. PT TOLERATES MEDS AND MEALS. PT UP SITTING IN THE CHAIR FOR MOST OF THE SHIFT. PT SLOWLY PROGRESSING TOWSUPAS POC GOALS.
[2019-04-28 17:29] LABS: ABSOLUTE NEUTROPHILS 6.1 thou/uL (1.4-8.2); BASOPHILS 0.9 % (0.0-2.0); EOSINOPHILS 0.9 % (0.0-3.0); HEMATOCRIT 39.1 % (42.0-52.0); HEMOGLOBIN 12.7 gm/dL (14.0-18.0); LYMPHOCYTES 7.7 % (24.0-44.0); MCH 31.2 pg (26.0-34.0); MCHC 32.5 g/dL (28.0-37.0); MCV 95.8 fL (80.0-100.0); MONOCYTES 7.1 % (1.0-8.0); PLATELET COUNT 147 thou/uL (150-400); POLYS 83.4 % (36.0-66.0); RBC 4.08 mil/uL (4.50-6.00); RDW 14.5 % (10.5-14.5); WBC 7.3 thou/uL (4.0-11.0)
[2019-04-28 17:47] LABS: ALBUMIN 2.3 g/dL (3.4-5.0); CREATININE 0.6 mg/dL (0.7-1.3); POTASSIUM 4.4 mmol/L (3.5-5.1); TOTAL BILIRUBIN 0.5 mg/dL (<0.1-1.0); TOTAL PROTEIN 5.6 g/dL (6.4-8.2)
[2019-04-28 18:28] VITALS: BP 103/50
[2019-04-28 18:55] VITALS: BP 98/60
[2019-04-28 21:59] VITALS: BP 109/61
--- NOTE | 2019-04-28 23:33 | NUR ---
PT ASSESSMENT DONE AND VSS. MEDS GIVEN AND WELL TOLERATED. FALL PRECAUTIONS IN PLACE. SLEEPING IN CHAIR WITH FOOT REST UP OVERNIGHT. HOURLY ROUNDING. CALL LIGHT IN REACH. WILL CONTINUE TO MONITOR.
[2019-04-29 02:07] VITALS: BP 108/59
--- NOTE | 2019-04-29 04:13 | NUR ---
GEORGI NORMAN CALLED THIS NURSE TO CONVEY ORDERS FROM MD MONTES DE OCA DURING FIRST HALF OF SHIFT. ORDERS RECEIVED FOR FEVER OF 101.0 AND OVER TO DO STAT BLOOD AND URINE CULTURES. ALSO CALL BACK GEORGI NORMAN FOR ANTIBIOTIC ORDERS. ALSO ORDER A CONSULT FOR DERMATOLOGY WITH MD MAGAÑA TO FOLLOW UP ON PT RASH TO BOTTOMS OF FEET AND BUTTOCKS. DOING Q 4 HR VSS. TEMP AT 2200 WAS 99.4 DEGREES. AT 0200 WAS 98.2 DEGREES. WILL CONTINUE TO MONITOR.
[2019-04-29 05:05] VITALS: BP 108/58
[2019-04-29 06:44] LABS: CALCIUM 8.1 mg/dL (8.5-10.1); CREATININE 0.7 mg/dL (0.7-1.3); MAGNESIUM 1.9 mg/dL (1.8-2.4); PHOSPHORUS 2.6 mg/dL (2.5-4.9)
[2019-04-29 07:05] VITALS: BP 106/67
--- NOTE | 2019-04-29 12:19 | NUR ---
WEB APPLICATIONS PROGRAMMER DR. MAGAÑA HERE TO SEE PT THIS AFTERNOON. PT WAS GIVEN PRESCRIPTIONS AND INFORMATION ON F/U CARE AFTER DISCHARGE.
[2019-04-29 16:00] VITALS: BP 102/51
[2019-04-29 19:39] VITALS: BP 111/90
[2019-04-30 01:56] VITALS: BP 85/55
--- NOTE | 2019-04-30 01:56 | NUR ---
PT ALERT AND ORIENTED X 4. AMB TO BR WITH WALKER AND ASSIST X 1. LEFT MIDLINE INTACT. FEET AND BUTTOCKS RED. HYDROCORTISONE CREAM APPLIED ORDERED. PT C/O BACK PAIN. SCHEDULED TRAMADOL GIVEN AT HS AND PT SLEEPING UPON REASSESSMENT. PT SLEEPS IN RECLINER. CHAIR ALARM ON FOR SAFETY. PT STATES HE HAS BEEN SLEEPING WELL TONIGHT. PT CHECKED ON HOURLY ROUNDS.
[2019-04-30 05:29] VITALS: BP 98/50
[2019-04-30 07:31] VITALS: BP 90/55
[2019-04-30] MEDS ORDERED: DIFLUCAN200 MG PO (11:37)
[2019-04-30] MEDS ORDERED: [UNRECOGNIZED DRUG - OTHER] TOP (11:37)
--- NOTE | 2019-04-30 13:03 | NUR ---
team meeting, recommendation: re team with dc on , ( pt, ot and nursing). dme needs fww. will cont following as needed for dc needs.
--- NOTE | 2019-04-30 13:29 | NUR ---
ORDERS RECEIVED FOR O.T. TO "PLEASE WRAP LEGS ABOVE ANKLE FOR 4 HOURS EVERYDAY IN BETWEEN THERAPY." WILL DEFER THIS ORDER AT THIS TIME UNTIL FURTHER CLARIFICATION IS RECEIVED REGARDING LEVEL OF WRAPS AND WEARING SCHEDULE. IF WRAPS DONE ONLY ANKLE TO KNEES, FEAR PT WILL DEVELOP 'TOURNIQUET EFFECT' TO BILATERAL FEET WITH INCREASED EDEMA IN FEET. ALSO, WOULD RECOMMEND WRAPS STAY ON ALL DAY WHEN OUT OF BED TO IMPROVE EDEMA CONTROL. WILL DISCUSS WITH DR. MONTES DE OCA AND INITIATE FURTHER ORDERS IN AM.
--- NOTE | 2019-04-30 15:30 | NUR ---
DISCHARGE PLANNING. ANTICIPATED DISCHARGE PLANNED FOR 05/09 PER UNIT CM. HOME HEALTH AND WALKER RECOMMENDED AT DISCHARGE. PATIENT REFERRAL FAXED TO [facility] FOR HH NEEDS. CALL PLACED TO [facility] TO NOTIFY. SPOKE WITH [facility] JUSTIN INTAKE. ACCEPTING OF PATIENT AT DISCHARGE. PATIENT REFERRAL FAXED TO [facility] FOR WALKER NEEDS. VERIFIED RECEIVED. JAMIE TO FACILITATE PATIENT WALKER NEEDS PRIOR TO DISCHARGE. FOLLOWING.
[2019-04-30 15:39] LABS: ALBUMIN 2.1 g/dL (3.4-5.0); DIRECT BILIRUBIN 0.2 mg/dL (<0.1-0.2); TOTAL BILIRUBIN 0.6 mg/dL (<0.1-1.0); TOTAL PROTEIN 5.1 g/dL (6.4-8.2)
--- NOTE | 2019-04-30 16:07 | H ---
[facility] [place] [address] HISTORY AND PHYSICAL Name: SHIRIN CENTENO Room #: 503-P ADM IN M.R.#: [id number] Admission: 04/24/19 Attend Phys: Jayson Montelongo MD Discharge: Date of : 40 Report #: [id number] THIS REPORT FOR: //name// CC: Jayson Camacho DATE OF SERVICE: 04/24/2019 HISTORY AND PHYSICAL/POST-ADMISSION PHYSICIAN EVALUATION HISTORY OF PRESENT ILLNESS: The patient has been admitted for acute in-hospital inpatient rehabilitation. See my prior consult note dictation. Please see the history and physical, which is noted. Agree with the content of the history and physical and agree with the physical examination findings, assessment and plan. 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 He has been treated for presumed Guillain-[place] syndrome and has underwent IVIG x 5. His course was complicated by hypercarbic respiratory failure, which has improved and he was weaned off the ventilator. He does have a history of chronic atrial fibrillation with rapid ventricular rate. He also has a history of chronic pain with narcotic usage. He has progressed off the ventilator and has improved as far as his functional tolerance for therapies. He was felt to be ready and has now been admitted for acute in-hospital inpatient rehabilitation. As far as past medical history, allergies, and habits, please see the prior history and physical. MEDICATIONS: Please see the current MAR. REVIEW OF SYSTEMS: No current complaints of chest pain, shortness of breath, or abdominal discomfort. He notes his left leg is still weaker than his right. He still has some numbness distal lower extremities as well as over his left face. Denies specific swallowing problems. PHYSICAL EXAMINATION: GENERAL: The patient was seen earlier. He is in no distress. Alert. VITAL SIGNS: Last recorded temperature 97.3, pulse 91, respirations 16, blood pressure 105/65. HEENT: Facies appeared symmetric. CHEST: Sounded clear to auscultation. CARDIOVASCULAR: Regular rate and rhythm with occasional extra beats. ABDOMEN: Bowel sounds positive, nontender. GENITOURINARY AND RECTAL: Deferred. EXTREMITIES: Functional range of motion of both upper and lower extremities. I would grade his strength at probably a 4-/5. He appears to have a little less ability with toe touch on the left. Reflexes are absent. He does have some [facility] [address] [place] [address] HISTORY AND PHYSICAL Name: SHIRIN CENTENO Room #: 503-P [facility] IN .R.#: [id number] Admission: 04/24/19 Attend Phys: Jayson Montelongo MD Discharge: Date of : 40 Report #: [id number] ataxia with attempted mobility. He is able to verbalize quite well. ASSESSMENT: A 78-year-old white male with the following problem list: 1. 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 Has completed five courses of intravenous immunoglobulin. 2. Acute hypercapnic hypoxic respiratory failure, which has improved/resolved. 3. Chronic atrial fibrillation with rapid ventricular rate on chronic anticoagulation. 4. History of lumbar spinal stenosis. 5. Coronary artery disease with prior stenting. 6. History of ventricular septal defect repair as a teenager. 7. Hypertension. 8. History of chronic pain with narcotic usage. 9. Atrial fibrillation with rapid ventricular rate. PLAN: The patient has been admitted for acute in-hospital inpatient rehabilitation. From a postadmission physician evaluation perspective, there are no relevant changes since the preadmission screening. Please see the above review of prior and current medical and functional conditions and comorbidities. Please see the patient's previous and current functional status. As far as risk of complications, the patient has multiple medical comorbidities as noted above. The initial plan of care involves the interdisciplinary acute inpatient rehabilitation program with goal of maximizing his functional independence, so that he can hopefully return back to his prior living situation. Measurable functional goals would be for the patient to become modified independent with transfers, mobility, ADLs, so he can back to the home setting. We have also asked speech therapy to assess regarding cognition, communication. Prognosis is reasonably good with estimated length of stay probably at least 10 days to 2 weeks pending progress. Potential barriers would include his multiple and neurologic complications as well as his functional deficits. The patient meets diagnostic criteria for an acute in-hospital inpatient rehabilitation stay. He meets medical necessity criteria. We will have the treasury consultant physicians continue to follow. He does have the tolerance for therapies and has appropriate discharge goals back to the home setting. <ELECTRONICALLY SIGNED> By: Jayson Montelongo MD 04/30/19 1607 [id number] [id number] Jayson Montelongo MD /[facility]
--- NOTE | 2019-04-30 19:50 | NUR ---
A/O, calm and pleasant; Stage 2 pressure ulcer was found on the bottom, Dr. An is aware, ordered low air loss mattress, night nurse is aware; wound consult notified; Patient was educated about reliving pressure on the ulcer area, but patient likes sitting on the chair, refused to be turned.
[2019-04-30 20:15] VITALS: BP 114/57; BP 159/81
--- NOTE | 2019-05-01 02:05 | NUR ---
PT ALERT AND ORIENTED X 4. AMB TO BR WITH WALKER AND ASSIST X 1. RASH REMAINS ON BUTTOCKS AND FEET. PT SLEEPS IN RECLINER. ENCOURAGED TO SHIFT POSTION Q2H. C/O PAIN IN HIS BUTTOCKS. TRAMADOL GIVEN AT HS WITH PARTIAL PAIN RELIEF VERBALIZED. LEFT MIDLINE IV INTACT. CHAIR ALARM ON FOR SAFETY. PT APPEARS TO BE SLEEPING ON HOURLY ROUNDS.
[2019-05-01 09:00] VITALS: BP 113/66
--- NOTE | 2019-05-01 11:05 | NUR ---
ASSUMED CARE AT 0700. PATIENT IS ALERT AND ORIENTED X4. PATIENT RODRIGUEZ'S, FLOORHAND ARE EQUAL. MIDLINE IS PATIENT AND INTACT IN HIS LEFT UPPER ARM. LUNGS ARE CLEAR. ABD IS SOFT WITH BSX4. PATIENT IS VOIDING SHERYL COLORED URINE PER URINAL. FALL AND SAFETY PROTOCOLS IN PLACE. DENIES ANY PAIN AT THIS TIME. CONTINUES TO PROGRESS TOWARDS D/C GOALS. PATIENT HAS RASH ON BOTTOM AND BOTH FEET. LIDOCAINE PATCH APPLIED TO LOWER BACK. PATIENT IS UP IN HIS RECLINER WITH FEET ELEVATED. WILL CONTINUE TO MONITER.
--- NOTE | 2019-05-01 12:40 | NUR ---
DISCHARGE PLANNING. DISCHARGE PLAN IS TO HOME WITH HOME HEALTH SERVICES. PATIENT REFERRAL FAXED TO [facility] FOR HH NEEDS. ANTICIPATED DISCHARGE PLANNED FOR 05/09 PER UNIT CM. [facility]. FOLLOWING.
--- NOTE | 2019-05-01 14:34 | NUR ---
Patient participated in therapeutic group on 05/01/19 with Speech Therapy. Refer to documentation by
--- NOTE | 2019-05-01 15:00 | NUR ---
O.T. ORDERS FOR 'PLEASE WRAP LEGS ABOVE ANKLE FOR 4 HOURS EVERYDAY IN BETWEEN THERAPY' WERE RECEIVED 04/29/19. RN IS TO DISCUSS WITH PHYSICIAN REGARDING OTHER TREATMENT OPTIONS DUE TO RASH ON PT'S FEET LIMITING ABILTY TO WRAP FEET BUT ALSO THE RISK OF 'TOURNIQUET EFFECT' IF WRAPPING ONLY ANKLES TO KNEES. AT THIS TIME, O.T. WILL SIGN OFF UNTIL FURTHER ORDERS RECEIVED.
--- NOTE | 2019-05-01 16:33 | NUR ---
Patient participated in community reintegration on 05/01/19 with PATTERN FILER. Refer to documentation by PATTERN FILER.
[2019-05-01 19:49] VITALS: BP 105/59
--- NOTE | 2019-05-02 03:23 | NUR ---
ASSUMED CARE AT APPROX 1900 EVENING 05/02. PT SITTING UP IN RECLINER DOZING OFF AND ON. PT PREFERS TO SLEEP IN RECLINER STATING HE IS NOT COMFORTABLE IN THE BED. PT UP WITH 1 WITH WALKER TO BATHROOM. PT TOOK HS MEDS WITH WATER TOLERATING WELL. CREAM APPLIED TO FEET AND BUTTOCKS. CHAIR ALARM ON AND CALL LIGHT IN REACH. WILL CONTINUE TO MONITOR.
[2019-05-02 07:31] VITALS: BP 95/55
--- NOTE | 2019-05-02 08:02 | NUR ---
ASSUMED CARE AT 0700. PATIENT IS ALERT AND ORIENTED X4. PATIENT RODRIGUEZ'S, ENDOSCOPY RN ARE EQUAL. LUNGS ARE CLEAR. ABD IS SOFT WITH BSX4. PATIENT HAS RASH ON BOTTOM AND ON HIS FEET. VOIDING SHERYL COLORED URINE PER URINAL. UP IN RECLINER FOR MEALS. FALL AND SAFETY PROTOCOLS IN PLACE. DENIES ANY PAIN AT THIS TIME. CONTINUES TO PROGRESS TOWARDS D/C GOALS. WILL CONTINUE TO MONITER.
--- NOTE | 2019-05-02 08:06 | NUR ---
PATIENT HAS MIDLINE IN HIS LEFT AC. DRESSING IS DRY AND INTACT. SITE HAS NO REDNESS OR SWELLING NOTED.
--- NOTE | 2019-05-02 12:32 | NUR ---
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 Seen for early LOS. Current weight is at reported usual. Did lose some weight on acute but now back up. Prior respiratory failure due to narcotic overdose. Rectal bleed 2' hemorrhoids/constipation. On daily stool regimen. Last BM 05/01. On folic acid due to deficiency, vitamin D and Fe+. Pt eating well, 50-100% of meals documented with 100% intake of ensure supplement daily. RD obtained food preferences. Consider pt as low nutrition risk.
[2019-05-02 19:23] VITALS: BP 102/61
--- NOTE | 2019-05-03 03:36 | NUR ---
SACRAL PAIN MEDIATED WITH ANTIFUNGAL CREAM, CHANGE IN POSITION ENCOURAGED BUT IS LIMITED SINCE HE IS SLEEPING IN CHAIR. LEGS ELEVATED MOST OF THE TIME. PLAN LOTRIMIN ON LEGS UNDER WRAPS DURING DAY. DECLINED MIRALAX DUE TO BM 05/02. PLEASANT
[2019-05-03 09:30] VITALS: BP 97/52
--- NOTE | 2019-05-03 13:55 | PLAN ---
[facility] [place] [address] REHAB UNIT PLAN OF CARE Name: SHIRIN CENTENO Room #: 503-P ADM IN M.R.#: [id number] Admission: 04/24/19 Attend Phys: Jayson Montelongo MD Discharge: Date of : 40 Report #: [id number] THIS REPORT FOR: //name// CC: Jayson Camacho DATE OF SERVICE: 04/26/2019 PROGRESS NOTE AND OVERALL PLAN OF CARE SUBJECTIVE: The patient is seen back today in followup. He is in no distress. He did not sleep quite as well last night. He is already on melatonin. No focal calf swelling. He is working in therapies with transfers mod assist, gait max assist 65 feet front-wheeled walker. In occupational therapy, lower body dressing is dependent. Functional comprehension is noted. Moderate memory deficits. ASSESSMENT: 1. 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 2. Recent acute hypercapnic hypoxemic respiratory failure. 3. Chronic atrial fibrillation with rapid ventricular rate. 4. History of lumbar spinal stenosis. 5. Coronary artery disease with prior stenting. 6. History of ventricular septal defect. 7. Hypertension. 8. History of chronic pain with narcotic usage. 9. Atrial fibrillation with rapid ventricular rate. PLAN: The overall plan of care is based on the preadmission screen, post-admission physician evaluation and information garnered from therapy assessments. 1. Estimated length of stay is probably at least 10 days to 2 weeks and likely longer. 2. Medical prognosis is reasonably good. 3. Anticipated interventions includes the interdisciplinary acute inpatient rehabilitation program. 4. Anticipated functional outcomes would be for the patient to become modified independent with mobility and ADLs with a front-wheeled walker with improvement in cognition as well. 5. Discharge destination would be back to the home setting where he lives with his . 6. Expected therapy by discipline includes PT, OT and speech 1 hour per day each five days a week throughout the duration of the acute inpatient [facility] [address] [place] [address] REHAB UNIT PLAN OF CARE Name: SHIRIN CENTENO Room #: 503-P ADM IN .R.#: [id number] Admission: 04/24/19 Attend Phys: Jayson Montelongo MD Discharge: Date of : 40 Report #: [id number] rehabilitation stay. We may be able to taper his speech therapy some in favor of more PT and OT, but will need to see how he does. <ELECTRONICALLY SIGNED> By: Jayson Montelongo MD 05/03/19 1355 [id number] Jayson Montelongo MD /nt
--- NOTE | 2019-05-03 17:53 | NUR ---
ASSUMED CARE OF PT AT 0715. PT IS A&OX4 AND VITAL SIGNS ARE STABLE. PT REPORTS PAIN IN LOWER EXTREMITIES, BUT STATES THAT HE DOES NOT REQUIRE MEDICAITONS AT THIS TIME. PT PARTICIPATED IN SCHEDULED THERAPIES. BLE EDEMA +3, JONATHAN WRAPS IN PLACE ARE C/D/I. LOTRIMIN CREAM APPLIED TO BLE PER ORDERS. CALLS FOR ASSISTANCE APPROPRIATELY, FALL PRECAUTIONS IN PLACE AND NURSING WILL CONTINUE TO MONITOR.
[2019-05-03 19:05] VITALS: BP 120/57
--- NOTE | 2019-05-04 01:03 | NUR ---
ASSUMED CARE AT APPROX 1900 EVENING 05/03. PT SITTING IN RECLINER AT CHANGE OF SHIFT ALERT AND ORIENTED X4, APPROPRIATE AND COOPERATIVE. PT STATED HE HAS HAD SEVERAL FORMED BMS TODAY. PT TOOK HS MEDS WITHOUT DIFFICULTY. CREAM APPLIED TO RASH ON BACK WITH PT STATING HE FELT RASHES ARE IMPROVING. VSS. CHAIR ALARM ON AND CALL LIGHT IN REACH. WILL CONTINUE TO MONITOR.
--- NOTE | 2019-05-04 07:47 | NUR ---
ASSUMED CARE AT 0700. PATIENT IS ALERT AND ORIENTED X4. PATIENT LULI, PREVOCATIONAL/REHABILITATION COUNSELOR ARE CLEAR. ABD IS SOFT WITH BSX4. PATIENT IS UP IN HIS RECLINER FOR MEALS. UP TO THE BATHROOM WITH ASSIST OF 1 STAFF AND GAIT BELT TO V0ID SHERYL COLORED URINE. DENIES ANY PAIN. RASH ON HIS BOTTOM AND FEET CONTINUES TO IMPROVE. FALL AND SAFETY PROTOCOLS IN PLACE. DENIES ANY PAIN AT THIS TIME. CONTINUES TO PROGRESS TOWARDS D/C GOALS. WILL CONTINUE TO MONITER.
[2019-05-04 10:01] VITALS: BP 104/60
--- NOTE | 2019-05-04 10:45 | HC ---
[facility] [place] [address] CONSULTATION Name: SHIRIN CENTENO Room #: 503-P [facility] IN M.R.#: [id number] Admission: 04/24/19 Attend Phys: Jayson Montelongo MD Discharge: Date of : 40 Report #: [id number] THIS REPORT FOR: //name// CC: Jayson Camacho DATE OF SERVICE: 05/01/2019 CHIEF COMPLAINT: Bilateral feet and gluteal redness. HISTORY OF PRESENT ILLNESS: This is a 78-year-old male patient who I have been asked to see on the rehab unit. He was admitted from [facility] with acute onset of falls x 3 and neck and back pain. He was apparently intubated and was ultimately diagnosed with a Guillain-[place] syndrome. He is now here for rehabilitation. He is noted to have gluteal erythema and a rash on both of his feet and I have been asked to see him in this regard. PAST MEDICAL HISTORY: Positive for repair of a patent foramen ovale in 1957. He has had previous appendectomy, abdominal hernia repair. He had rheumatic fever as a child. He had a "bacterial infection of the spine in 1997". He has a history of hypertension, atrial fibrillation, high cholesterol, pneumonia, coronary artery disease, status post stent placement. SOCIAL HISTORY: Negative for alcohol or tobacco use. FAMILY HISTORY: Noncontributory. REVIEW OF SYSTEMS: CONSTITUTIONAL: The patient denies fever, chills, or weight loss. NEUROLOGICAL: The patient has some generalized weakness and some balance issues. ENT: The patient denies earache, nasal drainage or sore throat. CARDIOVASCULAR: The patient denies chest pain, palpitations or diaphoresis. PULMONARY: The patient denies cough or shortness of breath. GASTROINTESTINAL: The patient denies nausea, vomiting, diarrhea or abdominal pain. ORTHOPEDIC: The patient notes some swelling and redness to his feet. Otherwise, denies other pain and other systems in a 14-point review of systems are negative. PHYSICAL EXAMINATION: VITAL SIGNS: At this time include temperature 37.1, pulse 88, respiratory rate 20, blood pressure 113/66. GENERAL: This is a well-developed male patient who appears to be in minimal distress. HEENT: Head normocephalic. Nose and throat clear. [address] [address] CONSULTATION Name: SHIRIN CENTENO Room #: 503-P ADM IN M.R.#: [id number] Admission: 04/24/19 Attend Phys: Jayson Montelongo MD Discharge: Date of : 40 Report #: [id number] NECK: Supple. LUNGS: Clear.. HEART: Regular rhythm. ABDOMEN: Soft, bowel sounds present. EXTREMITIES: Demonstrate a rash on both feet consistent with tinea pedis. No open ulcerations. Gluteal region shows what appears to be fungal or yeast type dermatitis to the sacral gluteal region. No open ulcerations here as well. LABORATORY STUDIES: Include white blood cell count 7.3 with hemoglobin 12.7, hematocrit 39.1, platelet count 147. Sodium 138, potassium 4.0, chloride 106, CO2 of 28, BUN 13, creatinine 0.7, glucose is 115, albumin is 2.1. CLINICAL IMPRESSION: 1. Tinea pedis bilaterally. 2. Sacral gluteal yeast dermatitis. 3. Weakness and instability due to recent Guillain-[place] syndrome. 4. Moderate protein-calorie malnutrition. RECOMMENDATIONS: At this point in time, we will recommend Lotrimin cream to the feet bilaterally daily. Recommend antifungal moisture barrier cream to the gluteal region. Aggressive nutritional support, continuation of OT and PT and current medications would be appropriate. I appreciate being asked to see him in consultation. <ELECTRONICALLY SIGNED> By: Errol Rivas MD 05/04/19 1045 [id number] Errol Rivas MD /nt
[2019-05-04 20:01] VITALS: BP 108/62
--- NOTE | 2019-05-05 04:45 | NUR ---
UP TO BATHROOM WITH GAIT BELT, WALKER, AND CONTACT GUARD ASSIST. ANTIFUNGAL CREAM TO SOOTHE RASHY AREA ON LOW SACRAL AREA. SLEEPING ON CARDIAC CHAIR ALL NIGHT. PRN TYLENOL AT HS HELPFUL
[2019-05-05 08:00] VITALS: BP 101/55
--- NOTE | 2019-05-05 14:24 | NUR ---
ASSUMED CARE OF PT AT 0715. PT IS A&OX4 AND VITAL SIGNS ARE STABLE. PT REPORTS PAIN IN SACRUM, BUT STATES THAT IT IS "MANAGEABLE". PT AMBULATED WITH NURSING STAFF ON UNIT >250 FEET. NURSING STAFF ASSISTED PT WITH ADL'S PER PT REQUEST. PT ABLE TO PERFORM ALL ADLS WITH SUPERVISION AND SETUP ASSISTANCE BY NURSING STAFF. FOOT CARE COMPLETED BY NURSE AND LOTRIMIN CREAM APPLIED PER ORDERS. WOUND TO SACRUM, TREATED WITH Z-GUARD CREAM, POSITION CHANGES AND CHAIR PAD. BLE +1 PITTING EDEMA, JONATHAN WRAPS IN PLACE. PT REFUSED ALL BOWEL MEDICATIONS THIS SHIFT DUE TO FREQUENT LOOSE STOOLS YESTERDAY. CALLS APPROPRIATELY FOR ASSISTANCE. FALL PRECAUTIONS IN PLACE AND NURSING WILL CONTINUE TO MONITOR.
[2019-05-05 19:20] VITALS: BP 119/64
--- NOTE | 2019-05-05 21:17 | HC ---
[facility] [place] [address] CONSULTATION Name: SHIRIN CENTENO Room #: 503-P [facility] IN M.R.#: [id number] Admission: 04/24/19 Attend Phys: Jayson Montelongo MD Discharge: Date of : 40 Report #: [id number] THIS REPORT FOR: //name// CC: Jayson Camacho DATE OF SERVICE: 04/28/2019 NEUROBEHAVIORAL STATUS EXAM ATTENDING PHYSICIAN: Jayson Montelongo MD VALIDATION SPECIALIST: Romero Salazar, PhD CLINICAL PRESENTATION: The patient is a 78-year-old male admitted to the rehabilitation unit at [facility] for comprehensive inpatient rehabilitation program to improve functional mobility, activities of daily living and self-care and mental status secondary to 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 His course was complicated by hypercapnic respiratory failure, which improved and he was weaned off the ventilator. He has a history of chronic atrial fibrillation with rapid ventricular rate along with a history of chronic pain with narcotic use. A complete description of his medical condition and history along with medications can be found in his medical record. Neuropsychological consultation was requested to provide assistance with the assessment of cognitive and emotional status and to provide recommendations and services. Prior to this most recent admission, he was living independently with his in their home. The patient has one child. He reports having had difficulty with walking, which led to a fall and his son is helping him ambulate. 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 There is no other reported history of drug use. TECHNIQUES UTILIZED: Clinical interview, review of medical records, staff consultation and behavioral observation, mini mental status exam 2 standard version, digits forward, digits backward and brief verbal fluency assessment. EXAMINATION FINDINGS: The patient was alert and cooperative with the assessment. He accurately described the reason for his hospitalization. There is no evidence of aphasia. His thoughts are logical and goal oriented. There is no evidence of thought disorder. He does not report auditory or visual hallucinations. He describes his symptoms to include difficulty with word finding, memory and sleep. Appetite is reduced. He does not report feeling depressed, but he is concerned about his recovery. [address] [address] CONSULTATION Name: SHIRIN ECNTENO Room #: 503-P [facility] IN M.R.#: [id number] Admission: 04/24/19 Attend Phys: Jayson Montelongo MD Discharge: Date of : 40 Report #: [id number] Performance on the MMSE 2 brief version is within normal limits with a raw score of 15 of 16. He was 2/3 for immediate recall of 3 items after a brief time delay and distraction. Registration orientation to time and place was within normal limits. Performance on the MMSE 2 standard version is within normal limits with a raw score of 27 of 30. He was 3/5 for serial 7's. The patient could copy a simple geometric design, decreased upper extremity dexterity is noted. Digits forward was in the average range with a raw score of 7, T score of 46 and percentile rank of 34. Digits backward was in the average range with a raw score of 3, T score of 46 and percentile rank of 34. Single letter fluency assessment was in the average range with a T score of 55, percentile rank of 69. Single category fluency was in the low average range with a raw score of 12 and a T score of 43, percentile rank at 24. Clock drawing was satisfactory, although visual spatial/construction deficit is noted. The patient is presenting with subtle to mild difficulty in concentration and aspects of verbal fluency. DIAGNOSTIC IMPRESSION: Unspecified Anxiety Disorer Mild neurocognitive disorder, unspecified, without behavior disorder. RECOMMENDATIONS: The patient may benefit from the use of relaxation strategies to assist in the management of anxiety. He reports having been independent with activities of daily living, although increased assistance may be necessary to maintain safety following discharge. Consider outpatient neuropsych assessment to clarify neurocognitive deficits if symptoms persist upon discharge. Thank you very much for allowing me to provide the consultation on this patient. <ELECTRONICALLY SIGNED> By: Romero Salazar, PhD 05/05/19 2117 [id number] Romero Salazar, PhD /nt
--- NOTE | 2019-05-06 00:50 | NUR ---
PT ASSESSMENT COMPLETED AND VSS. MEDS GIVEN ORDERED AND WELL TOLERATED. FALL PRECAUTIONS IN PLACE. UP TO THE BATHROOM WITH ASST/CANE. PT ENCOURAGED TO SLEEP IN BED TONIGHT BECAUSE HIS BUTTOCK IS SORE. PT REFUSED STATING THAT HE IS NOT ABLE TO SLEEP IN THE BED HERE BUT WHEN HE GOES HOME HE WILL BE SURE TO GET ON HIS SIDE. PICTURES TAKEN OF BOTTOM. WOUND CARE CONSULT WILL BE ORDERED. SLEEPING WELL. WILL CONTINUE TO MONITOR FREQUENTLY.
[2019-05-06 05:02] LABS: ABSOLUTE NEUTROPHILS 2.1 thou/uL (1.4-8.2); BASOPHILS 0.5 % (0.0-2.0); EOSINOPHILS 3.3 % (0.0-3.0); HEMATOCRIT 35.2 % (42.0-52.0); HEMOGLOBIN 11.8 gm/dL (14.0-18.0); LYMPHOCYTES 17.5 % (24.0-44.0); MCH 32.4 pg (26.0-34.0); MCHC 33.4 g/dL (28.0-37.0); MONOCYTES 11.7 % (1.0-8.0); PLATELET COUNT 130 thou/uL (150-400); RBC 3.63 mil/uL (4.50-6.00); RDW 15.1 % (10.5-14.5); WBC 3.2 thou/uL (4.0-11.0)
[2019-05-06 05:04] LABS: CALCIUM 8.9 mg/dL (8.5-10.1); CREATININE 0.7 mg/dL (0.7-1.3); MAGNESIUM 1.9 mg/dL (1.8-2.4); POTASSIUM 3.8 mmol/L (3.5-5.1)
[2019-05-06 08:45] VITALS: BP 101/57
[2019-05-06 19:51] VITALS: BP 133/75
--- NOTE | 2019-05-06 20:03 | NUR ---
ASSUMED CARE OF PT AT 0715. PT IS A&OX4 AND VITAL SIGNS ARE STABLE. PT REPORTS SOME PAIN IN LOWER BACK, BUT REPORTS THAT IT IS MANAGED WELL WITH LIDOCAINE PATCH AND NON-PHARMACEUTICAL METHODS. RASH TO BUTTOCKS AND FEET MANAGED WITH ANTI-FUNGAL BARRIER CREAM AND ORDERED LOTRIMIN CREAM. EDEMA TO BLE IMPROVED SINCE YESTERDAY WITH +1 PITTING EDEMA TO CANELA AREA AND +2 PITTING EDEMA TO TOP OF BILATERAL FEET. JONATHAN WRAPS D/C'D AND TUBIGRIPS APPLIED TO BLE. PT REPORTED POOR SLEEP AND ORDERS RECEIVED THIS SHIFT FOR TRAZADONE AT BEDTIME. PT REFUSED BOWEL MEDS THIS SHIFT DUE TO FREQUENT LOOSE STOOLS OVER THE WEEKEND. PT HAD 1 SOFT STOOL THIS SHIFT. CALLS APPROPRIATELY FOR ASSISTANCE. FALL PRECAUTIONS IN PLACE AND NURSING WILL CONTINUE TO MONITOR.
--- NOTE | 2019-05-07 04:04 | NUR ---
SLEEPING IN CHAIR, CALLS FOR ASSIST UP TO TOILET. ANTIFUNGAL CREAM TO BUTTOCKS IS SOOTHING AND AREA IS HEALING ESPECIALLY ON THE LEFT, RIGHT BUTTOCK IS MUCH ETCHER HAND AND LESS SENSITIVE THAN LAST WEEK. STEADY WALKING TO TOILET WITH WALKER AND GAIT BELT. HAD 50 MG TRAZADONE FOR THE FIRST TIME LAST EVENING, APPEARS TO BE SLEEPING MOST OF THE NIGHT SINCE THEN
[2019-05-07 09:29] VITALS: BP 101/64
--- NOTE | 2019-05-07 12:38 | NUR ---
team meeting recommendation: [facility] ([facility] ( pt,ot, and nursing).
[2019-05-07 18:55] VITALS: BP 111/60
--- NOTE | 2019-05-07 20:25 | NUR ---
ASSUMED CARE OF PT AT APPROX 0700. PT IS ALERT AND ORIENTD X4, ASSESSMENT CHARTED. DENIES PAIN. STATES HE IS DOING SO GREAT AND FEELS SO GOOD AND IS READY FOR DC ON MONDAY. PLAN IS FOR PT TO DC THIS MONDAY PT AND UPDATED. PT MAKING GOOD PROGRESS TOWARDS POC. NAD NOTED THIS SHIFT.
--- NOTE | 2019-05-08 03:55 | NUR ---
SACRUM REMAINS PINK AND IRRITATED, BUT WITHOUT WET OPEN ULCER. SLEPT WELL UNTIL 0300, BUT CANNOT GET BACK TO SLEEP NOW. STEADY GAIT WHEN UP TO TOILET AND IS LOOKING FORWARD TO GOING HOME TOMORROW.
[2019-05-08 08:37] VITALS: BP 120/49
--- NOTE | 2019-05-08 15:51 | NUR ---
Patient participated in community reintegration on 05/08/19 with OCCUPATIONAL THERAPY. Refer to documentation by ALBA CORTEZ.
--- NOTE | 2019-05-08 18:44 | NUR ---
ASSUMED CARE OF PT AT 0715. PT IS A&OX4 AND VITAL SIGNS ARE STABLE. PT REPORTS PAIN IN LOWER BACK, BUT STATES THAT IT IS "OKAY" AND DOES NOT REQUIRE ADDITIONAL MEDICATION AT THIS TIME. PT PARTICIPATED IN THERAPIES. ORDERS FOR MOD I IN ROOM WITH FWW. LOTRIMIN CREAM APPLIED TO BLE PER ORDERS. TUBI-SWING FRAME GRINDER OPERATOR IN PLACE TO BLE, +1 PITTING EDEMA AT THIS TIME. STATES THAT SHE IS UNABLE TO PICK-UP PT FOR D/C TOMORROW UNTIL APPROX 4PM. WILL NOTIFY CM IN AM ABOUT PLANS FOR DISCHARGE. FALL PRECAUTIONS IN PLACE AND NURSING WILL CONTINUE TO MONITOR.
[2019-05-08 19:35] VITALS: BP 105/52
--- NOTE | 2019-05-08 23:14 | NUR ---
PT ASSESSMENT DONE AND VSS. MEDS GIVEN AND WELL TOLERATED. FALL PRECAUTIONS IN PLACE. SLEEPING WELL. HOURLY ROUNDING. CALL LIGHT IN REACH. WILL CONTINUE TO MONITOR.
[2019-05-09 09:00] VITALS: BP 100/52
[2019-05-09] MEDS ORDERED: ELIQUIS5 MG PO (09:32)
--- NOTE | 2019-05-09 09:43 | NUR ---
nany packet giving to pt, 30 day free card and rx being filled at [facility] outpt pharmacy. pt understands that his will have to activate the co-pay care after follow up with cardiology outpt and he stated he uses [facility] in [facility]. will transport pt home today, walker already delivered from [facility] and pt will need st for hh needs as well.
[2019-05-09 09:48] VITALS: BP 105/52
[2019-05-09] MEDS ORDERED: VITAMIN D325 MCG PO (09:57)
[2019-05-09] MEDS ORDERED: FOLIC ACID1 MG PO (09:57)
[2019-05-09] MEDS ORDERED: MELATONIN5 M1 PO (09:57)
[2019-05-09] MEDS ORDERED: LIDOPATCH1 EACH TRANSDERM (09:57)
[2019-05-09] MEDS ORDERED: SENNA-TIME S T1 EACH PO (09:57)
[2019-05-09] MEDS ORDERED: TYLENOL325 MG PO (09:57)
[2019-05-09] MEDS ORDERED: ZANAFLEX4 MG PO (09:57)
[2019-05-09] MEDS ORDERED: PEPCID20 MG PO (09:57)
[2019-05-09] MEDS ORDERED: ULTRAM 50MG TAB50 MG PO (09:58)
--- NOTE | 2019-05-09 10:52 | NUR ---
DISCHARGE/HOME HEALTH AND DISCHARGE SUMMARY FAXED TO [facility]. CALL PLACED TO [facility], SPOKE WITH LIGIA IN INTAKE. LIGIA TO FACILITATE.
[2019-05-09 14:20] VITALS: BP 105/52
--- NOTE | 2019-05-09 16:45 | NUR ---
ASSUMED CARE OF PT AT 0715. PT IS A&OX4 AND VITAL SIGNS ARE STABLE. PT REPORTS PAIN WHICH IS MANAGED WITHOUT PO PAIN MEDICATIONS AT THIS TIME. PT IS MOD I IN ROOM. ORDERS FOR DISCHARGE OBTAINED. DISHCARGE MEDICATIONS REVIEWED, SCRIPTS PROVIDED IN DISCHARGE PACKET, DISCHARGE INSTRUCTIONS AND EDUCATION REVIEWED. PT DENIES QUESTIONS. WITH PT AT TIME OF DISCAHRGE. PT TRANSPORTED TO MEDICAL MALL BY [facility] AT 1630.
[2019-05-09 16:55] VITALS: BP 105/52
== END 2019-05-09 16:30 | disposition home health service (06) | DRG 94 ==
LOC: ENTRNSPT 05-09 16:17
PROVIDERS: Internal Medicine; Nurse Practitioner; ADMIT Physical Medicine & Rehabilitation
DX: G61.0 Guillain-Barre syndrome (principal); J96.21 Acute and chronic respiratory failure with hypoxia; J96.22 Acute and chronic respiratory failure with hypercapnia; E43 Unspecified severe protein-calorie malnutrition; I48.20 Chronic atrial fibrillation, unspecified; E44.0 Moderate protein-calorie malnutrition; I25.10 Atherosclerotic heart disease of native coronary artery without angina pectoris; I10 Essential (primary) hypertension; G89.29 Other chronic pain; R27.0 Ataxia, unspecified; D64.9 Anemia, unspecified; E78.00 Pure hypercholesterolemia, unspecified; K64.9 Unspecified hemorrhoids; K59.00 Constipation, unspecified; E55.9 Vitamin D deficiency, unspecified; I95.9 Hypotension, unspecified; E53.8 Deficiency of other specified B group vitamins; N40.0 Benign prostatic hyperplasia without lower urinary tract symptoms; M48.061 Spinal stenosis, lumbar region without neurogenic claudication; E78.5 Hyperlipidemia, unspecified; F41.9 Anxiety disorder, unspecified; R41.9 Unspecified symptoms and signs involving cognitive functions and awareness; B35.3 Tinea pedis; L30.8 Other specified dermatitis; R29.6 Repeated falls; T40.601A Poisoning by unspecified narcotics, accidental (unintentional), initial encounter; Z79.01 Long term (current) use of anticoagulants; Z95.5 Presence of coronary angioplasty implant and graft; Z95.1 Presence of aortocoronary bypass graft; Z90.49 Acquired absence of other specified parts of digestive tract; Z87.01 Personal history of pneumonia (recurrent); Z87.891 Personal history of nicotine dependence; Z80.9 Family history of malignant neoplasm, unspecified; Z68.25 Body mass index [BMI] 25.0-25.9, adult; Z85.828 Personal history of other malignant neoplasm of skin; Z80.8 Family history of malignant neoplasm of other organs or systems; Y92.89 Other specified places as the place of occurrence of the external cause
CPT/HCPCS: 10112